=== PATIENT | female | born 1930 | race Two or more races ===

== ENCOUNTER 2017-05-21 16:02 | Inpatient (IN) | payer MEDICARE, MEDICAID ==
[~2017-05-21] VITALS: Ht 160 cm; Wt 54.4 kg
[2017-05-21] MEDS ORDERED: Sodium Chloride 500ML 500 ML IV ONE (16:08)
[2017-05-21 16:15] VITALS: BP 136/66
[2017-05-21 17:01] LABS: BASOPHILS % (AUTO) 0.8 % (0.0-2.0); EOSINOPHILS % (AUTO) 3.3 % (0.0-3.0); LYMPHOCYTES % (AUTO) 18.6 % (20.0-45.0); MEAN CORPUSCULAR HEMOGLOBIN 27.9 PG (27.0-31.0); MEAN CORPUSCULAR HGB CONC 30.9 G/DL (32.0-36.0); MEAN CORPUSCULAR VOLUME 90 FL (80-99); MEAN PLATELET VOLUME 6.7 FL (6.5-10.1); MONOCYTES % (AUTO) 8.3 % (1.0-10.0); NEUTROPHILS % (AUTO) 68.9 % (45.0-75.0); PLATELET COUNT 269 K/UL (150-450); RED BLOOD COUNT 3.79 M/UL (4.20-5.40); RED CELL DISTRIBUTION WIDTH 12.3 % (11.6-14.8); WHITE BLOOD COUNT 10.6 K/UL (4.8-10.8)
[2017-05-21 17:02] LABS: APPEARANCE,URINE CLOUDY; KETONES,URINE 1+ (NEGATIVE); LEUKOCYTE ESTERASE ,URINE 3+ (NEGATIVE); NITRITE,URINE POSITIVE (NEGATIVE); PH,URINE 5 (4.5-8.0); PROTEIN,URINE 2+ (NEGATIVE); UROBILINOGEN,URINE 1 MG/DL (0.0-1.0)
[2017-05-21 17:09] LABS: BACTERIA,URINE MANY /HPF; SQUAMOUS EPITHELIAL CELL,UR FEW /LPF (NONE/OCC); WBC,URINE 30-40 /HPF (0 - 2)
[2017-05-21 17:12] VITALS: BP 154/63
[2017-05-21] MEDS ORDERED: AMLODIPINE BESY10 MG ORAL (17:39)
[2017-05-21] MEDS ORDERED: ASPIRIN EC81 MG ORAL (17:41)
[2017-05-21 17:43] LABS: POTASSIUM 3.3 MMOL/L (3.5-5.1); SODIUM 139 MMOL/L (136-145)
[2017-05-21] MEDS ORDERED: DOCUSATE SODIU100 MG ORAL (17:43)
[2017-05-21 17:44] LABS: ALANINE AMINOTRANSFERASE 25 U/L (12-78); ANION GAP 11 mmol/L (5-15); ASPARTATE AMINO TRANSFERASE 30 U/L (15-37); CALCIUM 8.8 MG/DL (8.5-10.1); CARBON DIOXIDE 26 MMOL/L (21-32); CHLORIDE 102 MMOL/L (98-107); CKMB 1.5 NG/ML (0.0-3.6); CREATININE 1.2 MG/DL (0.55-1.30)
[2017-05-21 17:45] LABS: ALBUMIN/GLOBULIN RATIO 0.9 (1.0-2.7); TOTAL PROTEIN 6.8 G/DL (6.4-8.2)
[2017-05-21] MEDS ORDERED: DULCOLAX10 MG RC (17:45)
[2017-05-21] MEDS ORDERED: FLEET ENEMA133 ML RECTAL (17:49)
[2017-05-21] MEDS ORDERED: LORazepam Inj 2mg/ml 1ml ONE ×2 (17:49→17:51)
[2017-05-21] MEDS ORDERED: METOPROLOL TART25 MG ORAL (17:50)
[2017-05-21] MEDS ORDERED: MILK OF MA400 MG/51 ORAL (17:51)
[2017-05-21] MEDS ORDERED: MULTIVITAMINS1 EA13 ORAL (17:53)
[2017-05-21] MEDS ORDERED: ACETAMINOPHEN325 M1 ORAL ×3 (17:56→17:59)
[2017-05-21] MEDS ORDERED: TRAZODONE HCL50 MG ORAL ×2 (17:56→18:32)
[2017-05-21] MEDS ORDERED: LORazepam Inj 2mg/ml 1ml IV ONE (18:00)
--- NOTE | 2017-05-21 18:01 | Emergency Room Report ---
History of Present Illness General Chief Complaint: Fever Source: Family Member, Medical Record Present Illness HPI 87-year-old female presents to ED for evaluation. Per EMS patient had fever today at residential. Patient was given Tylenol for the fever. Also complaining of cough and congestive symptoms. Cough is dry. Daughter at bedside. Patient does have dementia but denies any chest pain or shortness of breath. Denies any nausea or vomiting. No other aggravating relieving factors. Denies any other associated symptoms Allergies: Coded Allergies: PENICILLINS (Verified Allergy, Unknown, 05/21/17) Shrimp (Verified Allergy, Unknown, 05/21/17) Patient History Past Medical History: HTN, dementia, psych hx Past Surgical History: none Pertinent Family History: none Social History: Denies: smoking, alcohol use, drug use Now: No Reviewed Nursing Documentation: PMH: Agreed, PSxH: Agreed Nursing Documentation-PMH Past Medical History: No History, Except For Hx Hypertension: Yes History Of Psychiatric Problem: Yes - major depression Hx Neurological Problems: Yes - difficulty in walking, muscle weakness, dementia Review of Systems All Other Systems: limited Physical Exam Vital Signs Date Time Temp Pulse Resp B/P (MAP) Pulse Ox O2 Delivery O2 Flow Rate FiO2 05/21/17 15:53 98.2 84 16 140/67 96 Room Air Sp02 EP Interpretation: reviewed, normal General Appearance: no apparent distress, alert, GCS 15, non-toxic Head: normocephalic, atraumatic Eyes: bilateral eye normal inspection, bilateral eye PERRL ENT: hearing grossly normal, normal pharynx, no angioedema, normal voice Neck: full range of motion, supple/symm/no masses Respiratory: chest non-tender, lungs clear, normal breath sounds, speaking full sentences Cardiovascular #1: regular rate, rhythm, no edema Cardiovascular #2: 2+ carotid (R), 2+ carotid (L), 2+ radial (R), 2+ radial (L) , 2+ dorsalis pedis (R), 2+ dorsalis pedis (L) Gastrointestinal: normal bowel sounds, non tender, soft, non-distended, no guarding, no rebound Rectal: deferred Genitourinary: normal inspection, no CVA tenderness Musculoskeletal: back normal, gait/station normal, normal range of motion, non- tender Neurologic: alert, motor strength/tone normal, sensory intact, speech normal, other - dementia Psychiatric: other - dementia Reflexes: 3+ bicep (R), 3+ bicep (L), 3+ tricep (R), 3+ tricep (L), 3+ knee (R) , 3+ knee (L) Skin: normal color, no rash, warm/dry, well hydrated Lymphatic: no adenopathy Medical Decision Making Diagnostic Impression: Primary Impression: UTI (urinary tract infection) Qualified Codes: N39.0 - Urinary tract infection, site not specified Additional Impressions: Weakness Pneumonia Qualified Codes: J18.1 - Lobar pneumonia, unspecified organism ER Course Hospital Course 87-year-old female presenting to ED with generalized weakness, fever Differential diagnoses include: Pneumonia, UTI, sepsis, dehydration, WA/ unstable angina Clinical course Patient placed on stretcher. On satellite project site monitor with stable vitals are ED course. After initial history and physical, I ordered labs, IV fluids, EKG, chest x-ray, blood cultures, UA. Labs - electrolytes ok, no leukocytosis, troponins negative, UA grossly positive for UTI EKG - NSR, no acute ischemic changes interpreted by me CXR - LLL atelectais/infiltrate Abx given. IVFs given. Case discussed with Dr Nayak and they agreed to admit patient to their service for further care and support I feel this is a highly complex case requiring extensive working including EKG/ Rhythm strip, Xray/CT/US, Blood/urine lab work, repeat exams while in ED, and administration of strong opiates/narcotics for pain control, admission to hospital or close patient follow up. Diagnosis - UTI, generalized weakness, pneumonia Patient admitted to floor in serious condition Labs Test 05/21/17 16:35 05/21/17 16:42 Urine Color Yellow Urine Appearance Cloudy Urine pH 5 (4.5-8.0) Urine Specific [place] 1.010 (1.005-1.035) Urine Protein 2+ (NEGATIVE) Urine Glucose (UA) Negative (NEGATIVE) Urine Ketones 1+ (NEGATIVE) Urine Occult Blood 5+ (NEGATIVE) Urine Nitrite Positive (NEGATIVE) Urine Bilirubin Negative (NEGATIVE) Urine Urobilinogen 1 MG/DL (0.0-1.0) Urine Leukocyte Esterase 3+ (NEGATIVE) Urine RBC 5-10 /HPF (0 - 2) Urine WBC 30-40 /HPF (0 - 2) Urine Squamous Epithelial Cells Few /LPF (NONE/OCC) Urine Bacteria Many /HPF (NONE) White Blood Count 10.6 K/UL (4.8-10.8) Red Blood Count 3.79 M/UL (4.20-5.40) Hemoglobin 10.6 G/DL (12.0-16.0) Hematocrit 34.2 % (37.0-47.0) Mean Corpuscular Volume 90 FL (80-99) Mean Corpuscular Hemoglobin 27.9 PG (27.0-31.0) Mean Corpuscular Hemoglobin Concent 30.9 G/DL (32.0-36.0) Red Cell Distribution Width 12.3 % (11.6-14.8) Platelet Count 269 K/UL (150-450) Mean Platelet Volume 6.7 FL (6.5-10.1) Neutrophils (%) (Auto) 68.9 % (45.0-75.0) Lymphocytes (%) (Auto) 18.6 % (20.0-45.0) Monocytes (%) (Auto) 8.3 % (1.0-10.0) Eosinophils (%) (Auto) 3.3 % (0.0-3.0) Basophils (%) (Auto) 0.8 % (0.0-2.0) Sodium Level 139 MMOL/L (136-145) Potassium Level 3.3 MMOL/L (3.5-5.1) Chloride Level 102 MMOL/L (98-107) Carbon Dioxide Level 26 MMOL/L (21-32) Anion Gap 11 mmol/L (5-15) Blood Urea Nitrogen 16 mg/dL (7-18) Creatinine 1.2 MG/DL (0.55-1.30) Estimat Glomerular Filtration Rate mL/min (>60) Glucose Level 110 MG/DL (74-106) Calcium Level 8.8 MG/DL (8.5-10.1) Total Bilirubin 0.6 MG/DL (0.2-1.0) Aspartate Amino Transf (AST/SGOT) 30 U/L (15-37) Alanine Aminotransferase (ALT/SGPT) 25 U/L (12-78) Alkaline Phosphatase 71 U/L (46-116) Total Creatine Kinase 42 U/L (26-308) Creatine Kinase MB 1.5 NG/ML (0.0-3.6) Creatine Kinase MB Relative Index 3.5 Troponin I 0.000 ng/mL (0.000-0.056) Pro-B-Type Natriuretic Peptide 522 pg/mL (0-125) Total Protein 6.8 G/DL (6.4-8.2) Albumin 3.2 G/DL (3.4-5.0) Globulin 3.6 g/dL Albumin/Globulin Ratio 0.9 (1.0-2.7) EKG Diagnostic Results Rate: normal Rhythm: NSR ST Segments: no acute changes ASA given to the pt in ED: No Rhythm Strip Diag. Results EP Interpretation: yes Rhythm: NSR, no PVC's, no ectopy Chest X-Ray Diagnostic Results Chest X-Ray Diagnostic Results : Chest X-Ray Ordered: Yes # of Views/Limited/Complete: 1 View Indication: Other - cough EP Interpretation: Yes Interpretation: no pneumothorax, no acute cardiopulmonary disease, other - atelectasis LLL Impression: Other - pneumonia Electronically Signed by: Electronically signed by Librado Moreno MD Last Vital Signs Date Time Temp Pulse Resp B/P (MAP) Pulse Ox O2 Delivery O2 Flow Rate FiO2 05/21/17 17:12 97.6 76 18 154/63 97 Room Air Status: improved Disposition: ADMITTED INPATIENT Condition: Serious Referrals: SABRINA NAYAK (PCP) LIBRADO MORENO M.D. May 21, 2017 18:01
--- NOTE | 2017-05-21 18:59 | Consultation ---
History of Present Illness General Date patient seen: May 21, 2017 Chief Complaint: Fever Reason for Consultation: dyspnea Present Illness HPI 87-year-old female with hx of dementia, HTN, breast cancer presented to ED for evaluation of fever today at assisted. She is also complaining of cough and congestive symptoms. Denies any nausea or vomiting. No other aggravating relieving factors. Denies any other associated symptoms. she was diagnosed to have pneumonia and admitted for further work up. Allergies: Coded Allergies: PENICILLINS (Verified Allergy, Unknown, 05/21/17) Shrimp (Verified Allergy, Unknown, 05/21/17) Medication History Scheduled Amlodipine Besylate* (Amlodipine Besylate*), 10 MG ORAL DAILY, (Reported) Aspirin Ec* (Aspirin Ec*), 81 MG ORAL DAILY, (Reported) Docusate Sodium* (Docusate Sodium*), 100 MG ORAL DAILY, (Reported) Metoprolol Tartrate* (Metoprolol Tartrate*), 25 MG ORAL BID, (Reported) Multivitamin with Minerals (Multivitamins with Minerals), 1 TAB ORAL DAILY, ( Reported) Trazodone Hcl* (Desyrel*), 25 MG ORAL THREE TIMES A DAY, (Reported) Scheduled PRN Acetaminophen* (Acetaminophen 325MG Tablet*), 650 MG ORAL Q4H PRN for Mild pain/ temp>101, (Reported) Bisacodyl (Dulcolax), 10 MG RC DAILY PRN for Constipation, (Reported) Magnesium Hydroxide* (Milk Of Magnesia*), 30 ML ORAL BEDTIME PRN for Constipation, (Reported) Na Phos,M-B/Na Phos,Di-Ba* (Fleet Enema*), 133 ML RECTAL Q2days PRN for Constipation, (Reported) Patient History Healthcare decision maker Resuscitation status Advanced Directive on File Past Medical/Surgical History Past Medical/Surgical History: (1) Breast cancer (2) Dementia (3) Hypertension Review of Systems All Other Systems: negative except mentioned in HPI Physical Exam General Appearance: WD/WN Lines, tubes and drains: peripheral HEENT: normocephalic, atraumatic Neck: non-tender, normal alignment Cardiovascular/Chest: normal peripheral pulses, normal rate Abdomen: normal bowel sounds Genitourinary/Rectal: normal genital exam Extremities: non-tender Last 24 Hour Vital Signs Date Time Temp Pulse Resp B/P (MAP) Pulse Ox O2 Delivery O2 Flow Rate FiO2 05/21/17 17:12 97.6 76 18 154/63 97 Room Air 05/21/17 15:53 98.2 84 16 140/67 96 Room Air Intake and Output 05/21/17 05/22/17 19:00 07:00 Intake Total 500 ml Balance 500 ml Intake Oral 0 ml IV Total 500 ml Laboratory Tests Test 05/21/17 16:35 05/21/17 16:42 Urine Color Yellow Urine Appearance Cloudy Urine pH 5 (4.5-8.0) Urine Specific [place] 1.010 (1.005-1.035) Urine Protein 2+ (NEGATIVE) H Urine Glucose (UA) Negative (NEGATIVE) Urine Ketones 1+ (NEGATIVE) H Urine Occult Blood 5+ (NEGATIVE) H Urine Nitrite Positive (NEGATIVE) H Urine Bilirubin Negative (NEGATIVE) Urine Urobilinogen 1 MG/DL (0.0-1.0) H Urine Leukocyte Esterase 3+ (NEGATIVE) H Urine RBC 5-10 /HPF (0 - 2) H Urine WBC 30-40 /HPF (0 - 2) H Urine Squamous Epithelial Cells Few /LPF (NONE/OCC) Urine Bacteria Many /HPF (NONE) H White Blood Count 10.6 K/UL (4.8-10.8) Red Blood Count 3.79 M/UL (4.20-5.40) L Hemoglobin 10.6 G/DL (12.0-16.0) L Hematocrit 34.2 % (37.0-47.0) L Mean Corpuscular Volume 90 FL (80-99) Mean Corpuscular Hemoglobin 27.9 PG (27.0-31.0) Mean Corpuscular Hemoglobin Concent 30.9 G/DL (32.0-36.0) L Red Cell Distribution Width 12.3 % (11.6-14.8) Platelet Count 269 K/UL (150-450) Mean Platelet Volume 6.7 FL (6.5-10.1) Neutrophils (%) (Auto) 68.9 % (45.0-75.0) Lymphocytes (%) (Auto) 18.6 % (20.0-45.0) L Monocytes (%) (Auto) 8.3 % (1.0-10.0) Eosinophils (%) (Auto) 3.3 % (0.0-3.0) H Basophils (%) (Auto) 0.8 % (0.0-2.0) Sodium Level 139 MMOL/L (136-145) Potassium Level 3.3 MMOL/L (3.5-5.1) L Chloride Level 102 MMOL/L (98-107) Carbon Dioxide Level 26 MMOL/L (21-32) Anion Gap 11 mmol/L (5-15) Blood Urea Nitrogen 16 mg/dL (7-18) Creatinine 1.2 MG/DL (0.55-1.30) Estimat Glomerular Filtration Rate mL/min (>60) Glucose Level 110 MG/DL (74-106) H Calcium Level 8.8 MG/DL (8.5-10.1) Total Bilirubin 0.6 MG/DL (0.2-1.0) Aspartate Amino Transf (AST/SGOT) 30 U/L (15-37) Alanine Aminotransferase (ALT/SGPT) 25 U/L (12-78) Alkaline Phosphatase 71 U/L (46-116) Total Creatine Kinase 42 U/L (26-308) Creatine Kinase MB 1.5 NG/ML (0.0-3.6) Creatine Kinase MB Relative Index 3.5 Troponin I 0.000 ng/mL (0.000-0.056) Pro-B-Type Natriuretic Peptide 522 pg/mL (0-125) H Total Protein 6.8 G/DL (6.4-8.2) Albumin 3.2 G/DL (3.4-5.0) L Globulin 3.6 g/dL Albumin/Globulin Ratio 0.9 (1.0-2.7) L Microbiology Date/Time Source Procedure Growth Status 05/21/17 17:35 Nasal Nares Influenza Types A,B Antigen ([facility]ACE) - Final Complete Height (Feet): 5 Height (Inches): 3.00 Weight (Pounds): 120 Assessment/Plan Problem List: (1) Pneumonia ICD Codes: J18.9 - Pneumonia, unspecified organism SNOMED: 218639425 Qualifiers: Qualified Codes: J18.1 - Lobar pneumonia, unspecified organism (2) Dementia ICD Codes: F03.90 - Unspecified dementia without behavioral disturbance SNOMED: 14267262 (3) Breast cancer ICD Codes: C50.919 - Malignant neoplasm of unspecified site of unspecified female breast SNOMED: 732374069 (4) Hypertension ICD Codes: I10 - Essential (primary) hypertension SNOMED: 13868554 Assessment/Plan iv abx chest pt respiratory treatment check electrolytes psych evaluation ZANE NERI May 21, 2017 18:59
[2017-05-21] MEDS ORDERED: Miralax 17gm pkt ORAL PRN (19:00)
[2017-05-21] MEDS ORDERED: Nitroglycerin Subl 0.4mg tab SL PRN (19:00)
[2017-05-21] MEDS ORDERED: Albuterol/Ipratropium 3ml neb HHN PRN (19:00)
[2017-05-21] MEDS ORDERED: Promethazine/Codeine 5ml UD ORAL PRN (19:00)
[2017-05-21] MEDS ORDERED: Mylanta II UD 30ml ORAL PRN (19:00)
[2017-05-21 20:00] VITALS: BP 128/64
[2017-05-21] MEDS ORDERED: Cefepime HCl 1 GM in D5W 55 ML IV SCH (21:00)
[2017-05-21] MEDS ORDERED: Vancomycin 1gm/D5W 275ml IVPB ONE ×2 (21:30)
[2017-05-21] MEDS: Aztreonam 1gm/D5W 55ml IVPB SCH ×2 (22:46)
[2017-05-21] MEDS: Heparin 5000 units/ml inj SUBQ SCH (22:49)
[2017-05-22] VITALS (7 sets, daily range): BP systolic 107–158; BP diastolic 45–88
[2017-05-22 07:14] LABS: ANION GAP 14 mmol/L (5-15); CALCIUM 8.7 MG/DL (8.5-10.1); CARBON DIOXIDE 23 MMOL/L (21-32); CHLORIDE 101 MMOL/L (98-107); CREATININE 0.9 MG/DL (0.55-1.30); PHOSPHORUS 2.4 MG/DL (2.5-4.9); SODIUM 138 MMOL/L (136-145)
[2017-05-22 07:54] LABS: BASOPHILS % (AUTO) 0.7 % (0.0-2.0); EOSINOPHILS % (AUTO) 4.8 % (0.0-3.0); LYMPHOCYTES % (AUTO) 14.5 % (20.0-45.0); MEAN CORPUSCULAR HEMOGLOBIN 28.5 PG (27.0-31.0); MEAN CORPUSCULAR HGB CONC 31.5 G/DL (32.0-36.0); MEAN CORPUSCULAR VOLUME 90 FL (80-99); MEAN PLATELET VOLUME 5.6 FL (6.5-10.1); MONOCYTES % (AUTO) 7.1 % (1.0-10.0); NEUTROPHILS % (AUTO) 72.9 % (45.0-75.0); PLATELET COUNT 277 K/UL (150-450); RED BLOOD COUNT 3.79 M/UL (4.20-5.40); RED CELL DISTRIBUTION WIDTH 12.1 % (11.6-14.8); WHITE BLOOD COUNT 11.5 K/UL (4.8-10.8)
[2017-05-22] MEDS: D5 1/2NS 1,000 ML IV SCH (09:17)
[2017-05-22] MEDS: TraZODone 50mg tab ORAL SCH ×3 (09:17→18:00)
[2017-05-22] MEDS: Heparin 5000 units/ml inj SUBQ SCH ×2 (09:18→21:11)
[2017-05-22] MEDS: Metoprolol 25mg tab ORAL SCH ×2 (09:22→18:00)
[2017-05-22] MEDS ORDERED: LORazepam Inj 2mg/ml 1ml IM ONE (12:00)
[2017-05-22] MEDS ORDERED: Haloperidol 5mg/ml Inj IM ONE (12:00)
[2017-05-22] MEDS ORDERED: DiphenhydrAMINE 50mg/ml Inj IM ONE (12:00)
--- NOTE | 2017-05-22 12:06 | Diagnostic Imaging Report ---
Indication: Cough Comparison: None A single view chest radiograph was obtained. Findings: There is a question of infiltrate left lung base. This could very well be scarring. Please correlate clinically. Heart size is normal. Aorta is calcified. Bones are osteopenic. Impression: Questionable mild infiltrate left lung base
[2017-05-22] MEDS: Aztreonam 1gm/D5W 55ml IVPB SCH ×4 (12:42→22:53)
--- NOTE | 2017-05-22 12:54 | Infectious Diseases Prog Note ---
Assessment/Plan Assessment/Plan ID consult dictated # [id number] Subjective Allergies: Coded Allergies: PENICILLINS (Verified Allergy, Unknown, 05/21/17) Shrimp (Verified Allergy, Unknown, 05/21/17) Objective Vital Signs Last 24 Hour Vital Signs Date Time Temp Pulse Resp B/P (MAP) Pulse Ox O2 Delivery O2 Flow Rate FiO2 05/22/17 11:58 97.7 78 20 130/53 97 Room Air 05/22/17 09:22 102 131/52 05/22/17 09:22 102 131/52 05/22/17 09:10 102 131/52 05/22/17 08:49 98.2 80 18 113/57 97 Room Air 05/22/17 08:13 92 18 Room Air 05/22/17 04:35 98.2 90 18 140/80 97 Room Air 05/22/17 00:30 97.9 102 19 158/73 95 Room Air 05/21/17 20:00 97.0 90 18 128/64 94 Room Air 05/21/17 19:28 98 18 Room Air 05/21/17 19:00 99 19 111/72 99 Room Air 05/21/17 17:12 97.6 76 18 154/63 97 Room Air 05/21/17 16:15 98.2 64 18 136/66 96 Room Air 05/21/17 15:53 98.2 84 16 140/67 96 Room Air Height (Feet): 5 Height (Inches): 3.00 Weight (Pounds): 120 Microbiology Date/Time Source Procedure Growth Status 05/21/17 17:35 Nasal Nares Influenza Types A,B Antigen (W[facility]ACE) - Final Complete 05/21/17 16:35 Urine,Clean Catch Urine Culture - Preliminary Gram Negative Bacillus 1 Resulted Laboratory Tests Test 05/21/17 16:35 05/21/17 16:42 05/22/17 05:45 Urine Color Yellow Urine Appearance Cloudy Urine pH 5 (4.5-8.0) Urine Specific [place] 1.010 (1.005-1.035) Urine Protein 2+ (NEGATIVE) H Urine Glucose (UA) Negative (NEGATIVE) Urine Ketones 1+ (NEGATIVE) H Urine Occult Blood 5+ (NEGATIVE) H Urine Nitrite Positive (NEGATIVE) H Urine Bilirubin Negative (NEGATIVE) Urine Urobilinogen 1 MG/DL (0.0-1.0) H Urine Leukocyte Esterase 3+ (NEGATIVE) H Urine RBC 5-10 /HPF (0 - 2) H Urine WBC 30-40 /HPF (0 - 2) H Urine Squamous Epithelial Cells Few /LPF (NONE/OCC) Urine Bacteria Many /HPF (NONE) H White Blood Count 10.6 K/UL (4.8-10.8) 11.5 K/UL (4.8-10.8) H Red Blood Count 3.79 M/UL (4.20-5.40) L 3.79 M/UL (4.20-5.40) L Hemoglobin 10.6 G/DL (12.0-16.0) L 10.8 G/DL (12.0-16.0) L Hematocrit 34.2 % (37.0-47.0) L 34.2 % (37.0-47.0) L Mean Corpuscular Volume 90 FL (80-99) 90 FL (80-99) Mean Corpuscular Hemoglobin 27.9 PG (27.0-31.0) 28.5 PG (27.0-31.0) Mean Corpuscular Hemoglobin Concent 30.9 G/DL (32.0-36.0) L 31.5 G/DL (32.0-36.0) L Red Cell Distribution Width 12.3 % (11.6-14.8) 12.1 % (11.6-14.8) Platelet Count 269 K/UL (150-450) 277 K/UL (150-450) Mean Platelet Volume 6.7 FL (6.5-10.1) 5.6 FL (6.5-10.1) L Neutrophils (%) (Auto) 68.9 % (45.0-75.0) 72.9 % (45.0-75.0) Lymphocytes (%) (Auto) 18.6 % (20.0-45.0) L 14.5 % (20.0-45.0) L Monocytes (%) (Auto) 8.3 % (1.0-10.0) 7.1 % (1.0-10.0) Eosinophils (%) (Auto) 3.3 % (0.0-3.0) H 4.8 % (0.0-3.0) H Basophils (%) (Auto) 0.8 % (0.0-2.0) 0.7 % (0.0-2.0) Sodium Level 139 MMOL/L (136-145) 138 MMOL/L (136-145) Potassium Level 3.3 MMOL/L (3.5-5.1) L 3.0 MMOL/L (3.5-5.1) L Chloride Level 102 MMOL/L (98-107) 101 MMOL/L (98-107) Carbon Dioxide Level 26 MMOL/L (21-32) 23 MMOL/L (21-32) Anion Gap 11 mmol/L (5-15) 14 mmol/L (5-15) Blood Urea Nitrogen 16 mg/dL (7-18) 12 mg/dL (7-18) Creatinine 1.2 MG/DL (0.55-1.30) 0.9 MG/DL (0.55-1.30) Estimat Glomerular Filtration Rate mL/min (>60) mL/min (>60) Glucose Level 110 MG/DL (74-106) H 100 MG/DL (74-106) Calcium Level 8.8 MG/DL (8.5-10.1) 8.7 MG/DL (8.5-10.1) Total Bilirubin 0.6 MG/DL (0.2-1.0) Aspartate Amino Transf (AST/SGOT) 30 U/L (15-37) Alanine Aminotransferase (ALT/SGPT) 25 U/L (12-78) Alkaline Phosphatase 71 U/L (46-116) Total Creatine Kinase 42 U/L (26-308) Creatine Kinase MB 1.5 NG/ML (0.0-3.6) Creatine Kinase MB Relative Index 3.5 Troponin I 0.000 ng/mL (0.000-0.056) Pro-B-Type Natriuretic Peptide 522 pg/mL (0-125) H Total Protein 6.8 G/DL (6.4-8.2) Albumin 3.2 G/DL (3.4-5.0) L 2.9 G/DL (3.4-5.0) L Globulin 3.6 g/dL Albumin/Globulin Ratio 0.9 (1.0-2.7) L Phosphorus Level 2.4 MG/DL (2.5-4.9) L Current Medications Medications (Trade) Dose Ordered Sig/Rox Route PRN Reason Start Time Stop Time Status Last Admin Dose Admin Acetaminophen (Tylenol) 650 mg Q4H PRN ORAL fever 05/21/17 19:00 06/20/17 18:59 Al Hydroxide/Mg Hydroxide (Mylanta II) 30 ml Q6H PRN ORAL dyspepsia 05/21/17 19:00 06/20/17 18:59 Albuterol/ Ipratropium (Albuterol/ Ipratropium) 3 ml Q4HRT PRN HHN Shortness of Breath 05/21/17 19:00 05/26/17 18:59 Amlodipine Besylate (Norvasc) 10 mg DAILY ORAL 05/22/17 09:00 06/21/17 08:59 05/22/17 09:22 Aztreonam 1 gm/ Dextrose 55 ml @ 110 mls/hr Q12H IVPB 05/21/17 23:00 05/28/17 22:59 05/22/17 12:42 Dextrose/Sodium Chloride 1,000 ml @ 50 mls/hr Q20H IV 05/22/17 07:30 06/21/17 07:29 05/22/17 09:17 Heparin Sodium (Porcine) (Heparin 5000 units/ml) 5,000 units EVERY 12 HOURS SUBQ 05/21/17 21:00 06/20/17 20:59 05/22/17 09:18 Metoprolol Tartrate (Lopressor) 25 mg BID ORAL 05/22/17 09:00 06/21/17 08:59 05/22/17 09:22 Nitroglycerin (Ntg) 0.4 mg q5 mins PRN SL Prn Chest Pain 05/21/17 19:00 06/20/17 18:59 Ondansetron HCl (Zofran) 4 mg Q6H PRN IVP Nausea & Vomiting 05/21/17 19:00 06/20/17 18:59 Polyethylene Glycol (Miralax) 17 gm DAILYPRN PRN ORAL Constipation 05/21/17 19:00 06/20/17 18:59 Promethazine HCl/ Codeine (Phenergan with Codeine) 5 ml Q4H PRN ORAL For Cough 05/21/17 19:00 06/20/17 18:59 Temazepam (Restoril) 15 mg HSPRN PRN ORAL Insomnia 05/21/17 19:00 05/28/17 18:59 Trazodone HCl (Desyrel) 25 mg THREE TIMES A DAY ORAL 05/22/17 09:00 06/21/17 08:59 05/22/17 09:17 Vancomycin HCl (Vanco rx to dose) 1 ea DAILY PRN MISC Per rx protocol 05/21/17 19:00 06/20/17 18:59 Vancomycin HCl 750 mg/Dextrose 275 ml @ 183.708 mls/hr Q24H IVPB 05/22/17 21:00 05/27/17 20:59 VIKRAM ORELLANA May 22, 2017 12:54
--- NOTE | 2017-05-22 15:26 | Pulmonology Progress Note ---
Assessment/Plan Problems: (1) Pneumonia (2) Dementia (3) Breast cancer (4) Hypertension Assessment/Plan continue abx check sputum tolerating diet chest pt. Subjective ROS Limited/Unobtainable: No Interval Events: confused Constitutional: Reports: no symptoms Respiratory: Reports: no symptoms Allergies: Coded Allergies: PENICILLINS (Verified Allergy, Unknown, 05/21/17) Shrimp (Verified Allergy, Unknown, 05/21/17) Objective Last 24 Hour Vital Signs Date Time Temp Pulse Resp B/P (MAP) Pulse Ox O2 Delivery O2 Flow Rate FiO2 05/22/17 11:58 97.7 78 20 130/53 97 Room Air 05/22/17 09:22 102 131/52 05/22/17 09:22 102 131/52 05/22/17 09:10 102 131/52 05/22/17 08:49 98.2 80 18 113/57 97 Room Air 05/22/17 08:13 92 18 Room Air 05/22/17 04:35 98.2 90 18 140/80 97 Room Air 05/22/17 00:30 97.9 102 19 158/73 95 Room Air 05/21/17 20:00 97.0 90 18 128/64 94 Room Air 05/21/17 19:28 98 18 Room Air 05/21/17 19:00 99 19 111/72 99 Room Air 05/21/17 17:12 97.6 76 18 154/63 97 Room Air 05/21/17 16:15 98.2 64 18 136/66 96 Room Air 05/21/17 15:53 98.2 84 16 140/67 96 Room Air Objective General Appearance: WD/WN Lines, tubes and drains: peripheral HEENT: normocephalic, atraumatic Neck: non-tender, normal alignment Cardiovascular/Chest: normal peripheral pulses, normal rate Abdomen: normal bowel sounds Genitourinary/Rectal: normal genital exam Extremities: non-tender Microbiology Date/Time Source Procedure Growth Status 05/21/17 17:35 Nasal Nares Influenza Types A,B Antigen ([facility]ACE) - Final Complete 05/21/17 16:35 Urine,Clean Catch Urine Culture - Preliminary Gram Negative Bacillus 1 Resulted Laboratory Tests 05/21/17 16:35: Urine Color Yellow, Urine Appearance Cloudy, Urine pH 5, Urine Specific [place] 1.010, Urine Protein 2+H, Urine Glucose (UA) Negative, Urine Ketones 1+H, Urine Occult Blood 5+H, Urine Nitrite PositiveH, Urine Bilirubin Negative, Urine Urobilinogen 1H, Urine Leukocyte Esterase 3+H, Urine RBC 5-10H, Urine WBC 30-40H , Urine Squamous Epithelial Cells Few, Urine Bacteria ManyH 05/21/17 16:42: White Blood Count 10.6, Red Blood Count 3.79L, Hemoglobin 10.6L, Hematocrit 34.2L, Mean Corpuscular Volume 90, Mean Corpuscular Hemoglobin 27.9, Mean Corpuscular Hemoglobin Concent 30.9L, Red Cell Distribution Width 12.3, Platelet Count 269, Mean Platelet Volume 6.7, Neutrophils (%) (Auto) 68.9, Lymphocytes (%) (Auto) 18.6L, Monocytes (%) (Auto) 8.3, Eosinophils (%) (Auto) 3.3H, Basophils (%) (Auto) 0.8, Sodium Level 139, Potassium Level 3.3L, Chloride Level 102, Carbon Dioxide Level 26, Anion Gap 11, Blood Urea Nitrogen 16, Creatinine 1.2, Estimat Glomerular Filtration Rate , Glucose Level 110H, Calcium Level 8.8, Total Bilirubin 0.6, Aspartate Amino Transf (AST/SGOT) 30, Alanine Aminotransferase (ALT/SGPT) 25, Alkaline Phosphatase 71, Total Creatine Kinase 42, Creatine Kinase MB 1.5, Creatine Kinase MB Relative Index 3.5, Troponin I 0.000, Pro-B-Type Natriuretic Peptide 522H, Total Protein 6.8, Albumin 3.2L, Globulin 3.6, Albumin/Globulin Ratio 0.9L 05/22/17 05:45: White Blood Count 11.5H, Red Blood Count 3.79L, Hemoglobin 10.8L, Hematocrit 34.2L, Mean Corpuscular Volume 90, Mean Corpuscular Hemoglobin 28.5, Mean Corpuscular Hemoglobin Concent 31.5L, Red Cell Distribution Width 12.1, Platelet Count 277, Mean Platelet Volume 5.6L, Neutrophils (%) (Auto) 72.9, Lymphocytes (%) (Auto) 14.5L, Monocytes (%) (Auto) 7.1, Eosinophils (%) (Auto) 4.8H, Basophils (%) (Auto) 0.7, Sodium Level 138, Potassium Level 3.0L, Chloride Level 101, Carbon Dioxide Level 23, Anion Gap 14, Blood Urea Nitrogen 12, Creatinine 0.9, Estimat Glomerular Filtration Rate , Glucose Level 100, Calcium Level 8.7, Albumin 2.9L, Phosphorus Level 2.4L Current Medications Medications (Trade) Dose Ordered Sig/Rox Route PRN Reason Start Time Stop Time Status Last Admin Dose Admin Acetaminophen (Tylenol) 650 mg Q4H PRN ORAL fever 05/21/17 19:00 06/20/17 18:59 Al Hydroxide/Mg Hydroxide (Mylanta II) 30 ml Q6H PRN ORAL dyspepsia 05/21/17 19:00 06/20/17 18:59 Albuterol/ Ipratropium (Albuterol/ Ipratropium) 3 ml Q4HRT PRN HHN Shortness of Breath 05/21/17 19:00 05/26/17 18:59 Amlodipine Besylate (Norvasc) 10 mg DAILY ORAL 05/22/17 09:00 06/21/17 08:59 05/22/17 09:22 Aztreonam 1 gm/ Dextrose 55 ml @ 110 mls/hr Q12H IVPB 05/21/17 23:00 05/28/17 22:59 05/22/17 12:42 Dextrose/Sodium Chloride 1,000 ml @ 50 mls/hr Q20H IV 05/22/17 07:30 06/21/17 07:29 05/22/17 09:17 Heparin Sodium (Porcine) (Heparin 5000 units/ml) 5,000 units EVERY 12 HOURS SUBQ 05/21/17 21:00 06/20/17 20:59 05/22/17 09:18 Metoprolol Tartrate (Lopressor) 25 mg BID ORAL 05/22/17 09:00 06/21/17 08:59 05/22/17 09:22 Nitroglycerin (Ntg) 0.4 mg q5 mins PRN SL Prn Chest Pain 05/21/17 19:00 06/20/17 18:59 Ondansetron HCl (Zofran) 4 mg Q6H PRN IVP Nausea & Vomiting 05/21/17 19:00 06/20/17 18:59 Polyethylene Glycol (Miralax) 17 gm DAILYPRN PRN ORAL Constipation 05/21/17 19:00 06/20/17 18:59 Promethazine HCl/ Codeine (Phenergan with Codeine) 5 ml Q4H PRN ORAL For Cough 05/21/17 19:00 06/20/17 18:59 Temazepam (Restoril) 15 mg HSPRN PRN ORAL Insomnia 05/21/17 19:00 05/28/17 18:59 Trazodone HCl (Desyrel) 25 mg THREE TIMES A DAY ORAL 05/22/17 09:00 06/21/17 08:59 05/22/17 09:17 Vancomycin HCl (Vanco rx to dose) 1 ea DAILY PRN MISC Per rx protocol 05/21/17 19:00 06/20/17 18:59 Vancomycin HCl 750 mg/Dextrose 275 ml @ 183.708 mls/hr Q24H IVPB 05/22/17 21:00 05/27/17 20:59 ZANE NERI May 22, 2017 15:26
[2017-05-22] MEDS ORDERED: Vancomycin 750mg/D5W 275ml IVPB SCH ×2 (21:00)
--- NOTE | 2017-05-22 22:24 | Consultation ---
History of Present Illness General Chief Complaint: Fever Reason for Consultation: dyspnea Present Illness HPI 87-year-old female with hx of dementia, HTN, breast cancer presented to ED for evaluation of fever today at residential. the pt was agitated today and Dr. staples was called and he ordered a cocktail shot. the pe has not been seen and was still agitated. During the eval the pt was confused she knew she was in the hospital however didnt know the date nor the situation lead to this hospitalization. discuss the case with pt's nurse, to check vitals q 15 min for one hour and raise the pt's head Allergies: Coded Allergies: PENICILLINS (Verified Allergy, Unknown, 05/21/17) Shrimp (Verified Allergy, Unknown, 05/21/17) Medication History Scheduled Amlodipine Besylate* (Amlodipine Besylate*), 10 MG ORAL DAILY, (Reported) Aspirin Ec* (Aspirin Ec*), 81 MG ORAL DAILY, (Reported) Docusate Sodium* (Docusate Sodium*), 100 MG ORAL DAILY, (Reported) Metoprolol Tartrate* (Metoprolol Tartrate*), 25 MG ORAL BID, (Reported) Multivitamin with Minerals (Multivitamins with Minerals), 1 TAB ORAL DAILY, ( Reported) Trazodone Hcl* (Desyrel*), 25 MG ORAL THREE TIMES A DAY, (Reported) Scheduled PRN Acetaminophen* (Acetaminophen 325MG Tablet*), 650 MG ORAL Q4H PRN for Mild pain/ temp>101, (Reported) Bisacodyl (Dulcolax), 10 MG RC DAILY PRN for Constipation, (Reported) Magnesium Hydroxide* (Milk Of Magnesia*), 30 ML ORAL BEDTIME PRN for Constipation, (Reported) Na Phos,M-B/Na Phos,Di-Ba* (Fleet Enema*), 133 ML RECTAL Q2days PRN for Constipation, (Reported) Patient History History Provided By: Patient, Medical Record, PMD Healthcare decision maker Resuscitation status Full Code Advanced Directive on File Past Medical/Surgical History Past Medical/Surgical History: (1) Weakness (2) UTI (urinary tract infection) (3) Dementia (4) Breast cancer (5) Hypertension (6) Pneumonia Review of Systems Psychiatric: Reports: prior hx, anxiety, depressed feelings, emotional problems , hallucinations Physical Exam General Appearance: no apparent distress, alert, confused, thin Neurologic: alert, responsive, depressed affect Last 24 Hour Vital Signs Date Time Temp Pulse Resp B/P (MAP) Pulse Ox O2 Delivery O2 Flow Rate FiO2 05/22/17 20:15 90 18 Room Air 05/22/17 20:00 98.1 86 18 107/45 93 Room Air 05/22/17 18:00 90 110/88 05/22/17 16:28 97.6 90 20 110/88 93 05/22/17 11:58 97.7 78 20 130/53 97 Room Air 05/22/17 09:22 102 131/52 05/22/17 09:22 102 131/52 05/22/17 09:10 102 131/52 05/22/17 08:49 98.2 80 18 113/57 97 Room Air 05/22/17 08:13 92 18 Room Air 05/22/17 04:35 98.2 90 18 140/80 97 Room Air 05/22/17 00:30 97.9 102 19 158/73 95 Room Air Intake and Output 05/22/17 05/23/17 19:00 07:00 Intake Total 100 ml Balance 100 ml Intake Oral 50 ml IV Total 50 ml # Voids 3 # Bowel Movements 1 Laboratory Tests Test 05/22/17 05:45 White Blood Count 11.5 K/UL (4.8-10.8) H Red Blood Count 3.79 M/UL (4.20-5.40) L Hemoglobin 10.8 G/DL (12.0-16.0) L Hematocrit 34.2 % (37.0-47.0) L Mean Corpuscular Volume 90 FL (80-99) Mean Corpuscular Hemoglobin 28.5 PG (27.0-31.0) Mean Corpuscular Hemoglobin Concent 31.5 G/DL (32.0-36.0) L Red Cell Distribution Width 12.1 % (11.6-14.8) Platelet Count 277 K/UL (150-450) Mean Platelet Volume 5.6 FL (6.5-10.1) L Neutrophils (%) (Auto) 72.9 % (45.0-75.0) Lymphocytes (%) (Auto) 14.5 % (20.0-45.0) L Monocytes (%) (Auto) 7.1 % (1.0-10.0) Eosinophils (%) (Auto) 4.8 % (0.0-3.0) H Basophils (%) (Auto) 0.7 % (0.0-2.0) Sodium Level 138 MMOL/L (136-145) Potassium Level 3.0 MMOL/L (3.5-5.1) L Chloride Level 101 MMOL/L (98-107) Carbon Dioxide Level 23 MMOL/L (21-32) Anion Gap 14 mmol/L (5-15) Blood Urea Nitrogen 12 mg/dL (7-18) Creatinine 0.9 MG/DL (0.55-1.30) Estimat Glomerular Filtration Rate mL/min (>60) Glucose Level 100 MG/DL (74-106) Calcium Level 8.7 MG/DL (8.5-10.1) Phosphorus Level 2.4 MG/DL (2.5-4.9) L Albumin 2.9 G/DL (3.4-5.0) L Height (Feet): 5 Height (Inches): 3.00 Weight (Pounds): 120 Medications Current Medications Medications (Trade) Dose Ordered Sig/Rox Route PRN Reason Start Time Stop Time Status Last Admin Dose Admin Acetaminophen (Tylenol) 650 mg Q4H PRN ORAL fever 05/21/17 19:00 06/20/17 18:59 Al Hydroxide/Mg Hydroxide (Mylanta II) 30 ml Q6H PRN ORAL dyspepsia 05/21/17 19:00 06/20/17 18:59 Albuterol/ Ipratropium (Albuterol/ Ipratropium) 3 ml Q4HRT PRN HHN Shortness of Breath 05/21/17 19:00 05/26/17 18:59 Amlodipine Besylate (Norvasc) 10 mg DAILY ORAL 05/22/17 09:00 06/21/17 08:59 05/22/17 09:22 Aztreonam 1 gm/ Dextrose 55 ml @ 110 mls/hr Q8HR IVPB 05/22/17 22:00 05/28/17 22:59 Dextrose/Sodium Chloride 1,000 ml @ 50 mls/hr Q20H IV 05/22/17 07:30 06/21/17 07:29 05/22/17 09:17 Heparin Sodium (Porcine) (Heparin 5000 units/ml) 5,000 units EVERY 12 HOURS SUBQ 05/21/17 21:00 06/20/17 20:59 05/22/17 21:11 Metoprolol Tartrate (Lopressor) 25 mg BID ORAL 05/22/17 09:00 06/21/17 08:59 05/22/17 09:22 Nitroglycerin (Ntg) 0.4 mg q5 mins PRN SL Prn Chest Pain 05/21/17 19:00 06/20/17 18:59 Ondansetron HCl (Zofran) 4 mg Q6H PRN IVP Nausea & Vomiting 05/21/17 19:00 06/20/17 18:59 Polyethylene Glycol (Miralax) 17 gm DAILYPRN PRN ORAL Constipation 05/21/17 19:00 06/20/17 18:59 Promethazine HCl/ Codeine (Phenergan with Codeine) 5 ml Q4H PRN ORAL For Cough 05/21/17 19:00 06/20/17 18:59 Temazepam (Restoril) 15 mg HSPRN PRN ORAL Insomnia 05/21/17 19:00 05/28/17 18:59 Trazodone HCl (Desyrel) 25 mg THREE TIMES A DAY ORAL 05/22/17 09:00 06/21/17 08:59 05/22/17 09:17 Vancomycin HCl (Vanco rx to dose) 1 ea DAILY PRN MISC Per rx protocol 05/21/17 19:00 06/20/17 18:59 Vancomycin HCl 750 mg/Dextrose 275 ml @ 183.708 mls/hr Q24H IVPB 05/22/17 21:00 05/27/17 20:59 05/22/17 21:08 Assessment/Plan Status: stable Assessment/Plan dementia psychotic d/o zyprexa 5mg qhs depakote 250 qhs Opal Hidalgo M.D. May 22, 2017 22:24
--- NOTE | 2017-05-22 22:45 | History and Physical Report ---
DATE OF ADMISSION: 05/21/2017 TIME SEEN: At 1 p.m. ATTENDING PHYSICIAN: Mic Romero D.O. CONSULTANTS: 1. Kobi Lentz M.D. 2. Dr. Jones. 3. Aletha Valencia M.D. CHIEF COMPLAINT: Weakness, lethargy, UTI, pneumonia, and sepsis. BRIEF HISTORY: An 87-year-old female from [facility], presents with the above-mentioned diagnosis. In the ER, diagnosed with UTI, pneumonia, sepsis, and weakness and admitted to medical floor for further treatment. Currently calm, confused in bed, which is her baseline. PAST MEDICAL HISTORY: Hypertension, hypercholesterol, and dementia. PAST SURGICAL HISTORY: Neck. MEDICATIONS: Include vancomycin, Norvasc, Lopressor, Desyrel, aztreonam, heparin, Tylenol, MiraLax, nitroglycerin, and Phenergan. ALLERGIES: Penicillin. SOCIAL HISTORY: No smoking. No alcohol. No intravenous drug abuse. FAMILY HISTORY: Noncontributory. REVIEW OF SYSTEMS: Not available. PHYSICAL EXAMINATION: GENERAL: Calm in bed, oriented x1, in no distress. VITAL SIGNS: Show temperature 97 degrees, pulse 78, respirations 20, and blood pressure 130/53. CARDIOVASCULAR: No murmur. LUNGS: Poor exchange. ABDOMEN: Bowel sounds are positive. Nontender and nondistended. EXTREMITIES: No cyanosis, clubbing, or edema. NEUROLOGICAL: The patient moves all extremities slightly weak. LABORATORY DATA: Labs at this time show hemoglobin 10.8, white count 11.5, otherwise CBC is normal. BMP show potassium 3.0, otherwise BMP is normal. Urinalysis show nitrite positive and leukocyte 3+. ASSESSMENT: 1. Urinary tract infection. 2. Pneumonia. 3. Sepsis. 4. Weakness. 5. Dementia. 6. Hypokalemia. 7. Encephalopathy. 8. Anemia. PLAN: 1. Continue premedications. 2. IV fluids. 3. OT, PT, and dietary followup. 4. O2 and pulmonary treatment. 5. Antibiotics per Infectious Diseases. 6. Resume home medications. 7. Dr. Lentz, Dr. Jones, Dr. Valencia, and Dr. Hall to consult. 8. We will continue to follow the patient medically. Mic Romero D.O. DR: Liliya JOB#: [id number] CC:
[2017-05-23] VITALS (7 sets, daily range): BP systolic 116–149; BP diastolic 48–109
[2017-05-23] MEDS: D5 1/2NS 1,000 ML IV SCH ×2 (03:07→23:21)
[2017-05-23] MEDS: Aztreonam 1gm/D5W 55ml IVPB SCH ×6 (05:14→22:24)
[2017-05-23 07:46] LABS: BASOPHILS % (AUTO) 0.8 % (0.0-2.0); EOSINOPHILS % (AUTO) 10.9 % (0.0-3.0); MEAN CORPUSCULAR HEMOGLOBIN 29.2 PG (27.0-31.0); MEAN CORPUSCULAR HGB CONC 33.2 G/DL (32.0-36.0); MEAN CORPUSCULAR VOLUME 88 FL (80-99); MEAN PLATELET VOLUME 5.5 FL (6.5-10.1); MONOCYTES % (AUTO) 7.6 % (1.0-10.0); NEUTROPHILS % (AUTO) 61.7 % (45.0-75.0); PLATELET COUNT 317 K/UL (150-450); RED BLOOD COUNT 3.66 M/UL (4.20-5.40)
[2017-05-23 07:55] LABS: ANION GAP 12 mmol/L (5-15); CALCIUM 8.8 MG/DL (8.5-10.1); CARBON DIOXIDE 22 MMOL/L (21-32); CHLORIDE 105 MMOL/L (98-107); CREATININE 0.9 MG/DL (0.55-1.30); POTASSIUM 3.3 MMOL/L (3.5-5.1); SODIUM 139 MMOL/L (136-145)
--- NOTE | 2017-05-23 08:18 | General Progress Note ---
Assessment/Plan Problem List: (1) Hypokalemia ICD Codes: E87.6 - Hypokalemia SNOMED: 67394551 (2) Weakness ICD Codes: R53.1 - Weakness SNOMED: 81677768 (3) UTI (urinary tract infection) ICD Codes: N39.0 - Urinary tract infection, site not specified SNOMED: 48631532 Qualifiers: Qualified Codes: N39.0 - Urinary tract infection, site not specified (4) Dementia ICD Codes: F03.90 - Unspecified dementia without behavioral disturbance SNOMED: 61850748 (5) Hypertension ICD Codes: I10 - Essential (primary) hypertension SNOMED: 05207028 (6) Pneumonia ICD Codes: J18.9 - Pneumonia, unspecified organism SNOMED: 694379770 Qualifiers: Qualified Codes: J18.1 - Lobar pneumonia, unspecified organism Status: stable, progressing, tolerating diet Assessment/Plan ot pt diet abx neph f/u cbc bmp am Subjective Constitutional: Reports: weakness Allergies: Coded Allergies: PENICILLINS (Verified Allergy, Unknown, 05/21/17) Shrimp (Verified Allergy, Unknown, 05/21/17) All Systems: reviewed and negative except above Subjective sleepy calm Objective Last 24 Hour Vital Signs Date Time Temp Pulse Resp B/P (MAP) Pulse Ox O2 Delivery O2 Flow Rate FiO2 05/23/17 08:00 97.9 88 22 124/55 94 Room Air 05/23/17 04:00 98.1 89 19 139/96 96 Room Air 05/23/17 00:00 97.9 81 19 116/48 96 Room Air 05/22/17 20:15 90 18 Room Air 05/22/17 20:00 98.1 86 18 107/45 93 Room Air 05/22/17 18:00 90 110/88 05/22/17 16:28 97.6 90 20 110/88 93 05/22/17 11:58 97.7 78 20 130/53 97 Room Air 05/22/17 09:22 102 131/52 05/22/17 09:22 102 131/52 05/22/17 09:10 102 131/52 05/22/17 08:49 98.2 80 18 113/57 97 Room Air Laboratory Tests 05/23/17 05:19: White Blood Count 9.0, Red Blood Count 3.66L, Hemoglobin 10.7L, Hematocrit 32.1L , Mean Corpuscular Volume 88, Mean Corpuscular Hemoglobin 29.2, Mean Corpuscular Hemoglobin Concent 33.2, Red Cell Distribution Width 12.0, Platelet Count 317, Mean Platelet Volume 5.5L, Neutrophils (%) (Auto) 61.7, Lymphocytes ( %) (Auto) 19.0L, Monocytes (%) (Auto) 7.6, Eosinophils (%) (Auto) 10.9H, Basophils (%) (Auto) 0.8, Sodium Level 139, Potassium Level 3.3L, Chloride Level 105, Carbon Dioxide Level 22, Anion Gap 12, Blood Urea Nitrogen 11, Creatinine 0.9, Estimat Glomerular Filtration Rate , Glucose Level 123H, Calcium Level 8.8 Height (Feet): 5 Height (Inches): 3.00 Weight (Pounds): 120 General Appearance: lethargic EENT: normal ENT inspection Neck: normal alignment Cardiovascular: normal peripheral pulses, normal rate, regular rhythm Respiratory/Chest: chest wall non-tender, lungs clear, normal breath sounds Abdomen: normal bowel sounds, non tender, soft Extremities: normal inspection Edema: no edema noted Arm (L), no edema noted Arm (R), no edema noted Leg (L), no edema noted Leg (R), no edema noted Pedal (L), no edema noted Pedal (R), no edema noted Generalized Neurologic: motor weakness Skin: normal pigmentation, warm/dry SABRINA NAYAK May 23, 2017 08:18
--- NOTE | 2017-05-23 09:19 | Pulmonology Progress Note ---
Assessment/Plan Problems: (1) Pneumonia (2) Dementia (3) Breast cancer (4) Hypertension Assessment/Plan better controlled behavior continue abx check sputum tolerating diet chest pt. all notes and meds reviewed, labs ordered. Subjective ROS Limited/Unobtainable: No Constitutional: Reports: no symptoms HEENT: Repors: no symptoms Respiratory: Reports: no symptoms Allergies: Coded Allergies: PENICILLINS (Verified Allergy, Unknown, 05/21/17) Shrimp (Verified Allergy, Unknown, 05/21/17) Objective Last 24 Hour Vital Signs Date Time Temp Pulse Resp B/P (MAP) Pulse Ox O2 Delivery O2 Flow Rate FiO2 05/23/17 08:30 94 18 Room Air 05/23/17 08:00 97.9 88 22 124/55 94 Room Air 05/23/17 04:00 98.1 89 19 139/96 96 Room Air 05/23/17 00:00 97.9 81 19 116/48 96 Room Air 05/22/17 20:15 90 18 Room Air 05/22/17 20:00 98.1 86 18 107/45 93 Room Air 05/22/17 18:00 90 110/88 05/22/17 16:28 97.6 90 20 110/88 93 05/22/17 11:58 97.7 78 20 130/53 97 Room Air 05/22/17 09:22 102 131/52 05/22/17 09:22 102 131/52 Objective General Appearance: WD/WN Lines, tubes and drains: peripheral HEENT: normocephalic, atraumatic Neck: non-tender, normal alignment Cardiovascular/Chest: normal peripheral pulses, normal rate Abdomen: normal bowel sounds Genitourinary/Rectal: normal genital exam Extremities: non-tender Microbiology Date/Time Source Procedure Growth Status 05/21/17 16:42 Blood Blood Culture - Preliminary NO GROWTH AFTER 24 HOURS Resulted 05/21/17 16:42 Blood Blood Culture - Preliminary NO GROWTH AFTER 24 HOURS Resulted 05/21/17 17:35 Nasal Nares Influenza Types A,B Antigen (WALLACE) - Final Complete 05/21/17 16:35 Urine,Clean Catch Urine Culture - Preliminary Gram Negative Bacillus 1 Resulted 05/21/17 18:58 Rectum VRE Culture - Final NO VANCOMYCIN RESISTANT ENTEROCOCCUS ... Complete Laboratory Tests 05/23/17 05:19: White Blood Count 9.0, Red Blood Count 3.66L, Hemoglobin 10.7L, Hematocrit 32.1L , Mean Corpuscular Volume 88, Mean Corpuscular Hemoglobin 29.2, Mean Corpuscular Hemoglobin Concent 33.2, Red Cell Distribution Width 12.0, Platelet Count 317, Mean Platelet Volume 5.5L, Neutrophils (%) (Auto) 61.7, Lymphocytes ( %) (Auto) 19.0L, Monocytes (%) (Auto) 7.6, Eosinophils (%) (Auto) 10.9H, Basophils (%) (Auto) 0.8, Sodium Level 139, Potassium Level 3.3L, Chloride Level 105, Carbon Dioxide Level 22, Anion Gap 12, Blood Urea Nitrogen 11, Creatinine 0.9, Estimat Glomerular Filtration Rate , Glucose Level 123H, Calcium Level 8.8 Current Medications Medications (Trade) Dose Ordered Sig/Rox Route PRN Reason Start Time Stop Time Status Last Admin Dose Admin Acetaminophen (Tylenol) 650 mg Q4H PRN ORAL fever 05/21/17 19:00 06/20/17 18:59 05/23/17 06:15 Al Hydroxide/Mg Hydroxide (Mylanta II) 30 ml Q6H PRN ORAL dyspepsia 05/21/17 19:00 06/20/17 18:59 Albuterol/ Ipratropium (Albuterol/ Ipratropium) 3 ml Q4HRT PRN HHN Shortness of Breath 05/21/17 19:00 05/26/17 18:59 Amlodipine Besylate (Norvasc) 10 mg DAILY ORAL 05/22/17 09:00 06/21/17 08:59 05/22/17 09:22 Aztreonam 1 gm/ Dextrose 55 ml @ 110 mls/hr Q8HR IVPB 05/22/17 22:00 05/28/17 22:59 05/23/17 05:14 Dextrose/Sodium Chloride 1,000 ml @ 50 mls/hr Q20H IV 05/22/17 07:30 06/21/17 07:29 05/23/17 03:07 Divalproex Sodium (Depakote ER) 250 mg BEDTIME ORAL 05/23/17 21:00 06/22/17 20:59 Heparin Sodium (Porcine) (Heparin 5000 units/ml) 5,000 units EVERY 12 HOURS SUBQ 05/21/17 21:00 06/20/17 20:59 05/22/17 21:11 Metoprolol Tartrate (Lopressor) 25 mg BID ORAL 05/22/17 09:00 06/21/17 08:59 05/22/17 09:22 Nitroglycerin (Ntg) 0.4 mg q5 mins PRN SL Prn Chest Pain 05/21/17 19:00 06/20/17 18:59 Olanzapine (ZyPREXA) 5 mg BEDTIME ORAL 05/23/17 21:00 06/22/17 20:59 Ondansetron HCl (Zofran) 4 mg Q6H PRN IVP Nausea & Vomiting 05/21/17 19:00 06/20/17 18:59 Polyethylene Glycol (Miralax) 17 gm DAILYPRN PRN ORAL Constipation 05/21/17 19:00 06/20/17 18:59 Promethazine HCl/ Codeine (Phenergan with Codeine) 5 ml Q4H PRN ORAL For Cough 05/21/17 19:00 06/20/17 18:59 Temazepam (Restoril) 15 mg HSPRN PRN ORAL Insomnia 05/21/17 19:00 05/28/17 18:59 Vancomycin HCl (Vanco rx to dose) 1 ea DAILY PRN MISC Per rx protocol 05/21/17 19:00 06/20/17 18:59 Vancomycin HCl 750 mg/Dextrose 275 ml @ 183.708 mls/hr Q24H IVPB 05/22/17 21:00 05/27/17 20:59 05/22/17 21:08 ZANE NERI May 23, 2017 09:19
[2017-05-23] MEDS: Metoprolol 25mg tab ORAL SCH ×3 (09:24→17:31)
[2017-05-23] MEDS: Heparin 5000 units/ml inj SUBQ SCH ×2 (09:25→20:43)
[2017-05-23] MEDS ORDERED: D5 1/2NS 1000ml IV ONE (09:43)
[2017-05-23] MEDS ORDERED: NS 275ml ONE (09:43)
[2017-05-23] MEDS ORDERED: Tubing IV Secondary IV ONE (09:43)
[2017-05-23] MEDS ORDERED: Vancomycin 750 MG in NS 275 ML IVPB SCH ×2 (11:15→21:00)
--- NOTE | 2017-05-23 12:10 | Infectious Diseases Prog Note ---
Assessment/Plan Assessment/Plan antibiotics : vancomycin iv, aztreonam A 1. e.coli UTI 2. pneumonia 3. HTN 4. leucocytosis improving P 1. continue aztreonam 2. continue iv vancomycin 3. will follow up cultures Subjective ROS Limited/Unobtainable: Yes Allergies: Coded Allergies: PENICILLINS (Verified Allergy, Unknown, 05/21/17) Shrimp (Verified Allergy, Unknown, 05/21/17) Objective Vital Signs Last 24 Hour Vital Signs Date Time Temp Pulse Resp B/P (MAP) Pulse Ox O2 Delivery O2 Flow Rate FiO2 05/23/17 11:50 96 Room Air 05/23/17 11:42 97.9 92 22 132/58 05/23/17 09:24 87 131/57 05/23/17 09:23 87 131/57 05/23/17 09:22 87 131/57 05/23/17 08:30 94 18 Room Air 05/23/17 08:00 97.9 88 22 124/55 94 Room Air 05/23/17 04:00 98.1 89 19 139/96 96 Room Air 05/23/17 00:00 97.9 81 19 116/48 96 Room Air 05/22/17 20:15 90 18 Room Air 05/22/17 20:00 98.1 86 18 107/45 93 Room Air 05/22/17 18:00 90 110/88 05/22/17 16:28 97.6 90 20 110/88 93 Height (Feet): 5 Height (Inches): 3.00 Weight (Pounds): 120 Respiratory/Chest: lungs clear Cardiovascular: normal rate, regular rhythm, no gallop/murmur Abdomen: soft, non tender Extremities: no edema Microbiology Date/Time Source Procedure Growth Status 05/21/17 16:42 Blood Blood Culture - Preliminary NO GROWTH AFTER 24 HOURS Resulted 05/21/17 16:42 Blood Blood Culture - Preliminary NO GROWTH AFTER 24 HOURS Resulted 05/21/17 17:35 Nasal Nares Influenza Types A,B Antigen (WALLACE) - Final Complete 05/21/17 16:35 Urine,Clean Catch Urine Culture - Final Escherichia Coli Complete 05/21/17 18:58 Rectum VRE Culture - Final NO VANCOMYCIN RESISTANT ENTEROCOCCUS ... Complete Laboratory Tests Test 05/23/17 05:19 White Blood Count 9.0 K/UL (4.8-10.8) Red Blood Count 3.66 M/UL (4.20-5.40) L Hemoglobin 10.7 G/DL (12.0-16.0) L Hematocrit 32.1 % (37.0-47.0) L Mean Corpuscular Volume 88 FL (80-99) Mean Corpuscular Hemoglobin 29.2 PG (27.0-31.0) Mean Corpuscular Hemoglobin Concent 33.2 G/DL (32.0-36.0) Red Cell Distribution Width 12.0 % (11.6-14.8) Platelet Count 317 K/UL (150-450) Mean Platelet Volume 5.5 FL (6.5-10.1) L Neutrophils (%) (Auto) 61.7 % (45.0-75.0) Lymphocytes (%) (Auto) 19.0 % (20.0-45.0) L Monocytes (%) (Auto) 7.6 % (1.0-10.0) Eosinophils (%) (Auto) 10.9 % (0.0-3.0) H Basophils (%) (Auto) 0.8 % (0.0-2.0) Sodium Level 139 MMOL/L (136-145) Potassium Level 3.3 MMOL/L (3.5-5.1) L Chloride Level 105 MMOL/L (98-107) Carbon Dioxide Level 22 MMOL/L (21-32) Anion Gap 12 mmol/L (5-15) Blood Urea Nitrogen 11 mg/dL (7-18) Creatinine 0.9 MG/DL (0.55-1.30) Estimat Glomerular Filtration Rate mL/min (>60) Glucose Level 123 MG/DL (74-106) H Calcium Level 8.8 MG/DL (8.5-10.1) ANDREY MOSS May 23, 2017 12:10
[2017-05-23] MEDS: Depakote ER 250mg tab ORAL SCH (20:42)
[2017-05-24] MEDS: Aztreonam 1gm/D5W 55ml IVPB SCH ×6 (05:58→21:38)
[2017-05-24 08:00] VITALS: BP 138/94
[2017-05-24 08:05] LABS: MEAN CORPUSCULAR HEMOGLOBIN 29.5 PG (27.0-31.0); MEAN CORPUSCULAR HGB CONC 33.2 G/DL (32.0-36.0); MEAN CORPUSCULAR VOLUME 89 FL (80-99); MEAN PLATELET VOLUME 5.5 FL (6.5-10.1); PLATELET COUNT 377 K/UL (150-450); RED BLOOD COUNT 3.76 M/UL (4.20-5.40); RED CELL DISTRIBUTION WIDTH 12.3 % (11.6-14.8); WHITE BLOOD COUNT 8.4 K/UL (4.8-10.8)
[2017-05-24 08:23] LABS: ALANINE AMINOTRANSFERASE 61 U/L (12-78); ALBUMIN/GLOBULIN RATIO 0.6 (1.0-2.7); ANION GAP 11 mmol/L (5-15); ASPARTATE AMINO TRANSFERASE 60 U/L (15-37); CALCIUM 8.9 MG/DL (8.5-10.1); CARBON DIOXIDE 25 MMOL/L (21-32); CHLORIDE 106 MMOL/L (98-107); CREATININE 0.9 MG/DL (0.55-1.30); POTASSIUM 3.2 MMOL/L (3.5-5.1); SODIUM 142 MMOL/L (136-145); TOTAL PROTEIN 7.2 G/DL (6.4-8.2)
--- NOTE | 2017-05-24 08:43 | General Progress Note ---
Assessment/Plan Problem List: (1) Hypokalemia ICD Codes: E87.6 - Hypokalemia SNOMED: 14213140 (2) Weakness ICD Codes: R53.1 - Weakness SNOMED: 64051210 (3) UTI (urinary tract infection) ICD Codes: N39.0 - Urinary tract infection, site not specified SNOMED: 26699092 Qualifiers: Qualified Codes: N39.0 - Urinary tract infection, site not specified (4) Dementia ICD Codes: F03.90 - Unspecified dementia without behavioral disturbance SNOMED: 63180182 (5) Hypertension ICD Codes: I10 - Essential (primary) hypertension SNOMED: 13670431 (6) Pneumonia ICD Codes: J18.9 - Pneumonia, unspecified organism SNOMED: 880080644 Qualifiers: Qualified Codes: J18.1 - Lobar pneumonia, unspecified organism Status: stable, progressing, tolerating diet Assessment/Plan ot pt diet abx neph f/u cbc bmp am dc plan Subjective Constitutional: Reports: weakness Allergies: Coded Allergies: PENICILLINS (Verified Allergy, Unknown, 05/21/17) Shrimp (Verified Allergy, Unknown, 05/21/17) All Systems: reviewed and negative except above Subjective sleepy calm Objective Last 24 Hour Vital Signs Date Time Temp Pulse Resp B/P (MAP) Pulse Ox O2 Delivery O2 Flow Rate FiO2 05/24/17 08:00 97.8 80 19 138/94 98 Room Air 05/24/17 07:00 80 18 Room Air 05/23/17 20:00 97.9 108 20 149/109 94 Room Air 05/23/17 19:35 89 18 Room Air 05/23/17 16:00 97.6 94 20 132/64 96 Room Air 05/23/17 11:50 96 Room Air 05/23/17 11:42 97.9 92 22 132/58 05/23/17 09:24 87 131/57 05/23/17 09:23 87 131/57 05/23/17 09:22 87 131/57 Laboratory Tests 05/24/17 06:57: White Blood Count 8.4, Red Blood Count 3.76L, Hemoglobin 11.1L, Hematocrit 33.3L , Mean Corpuscular Volume 89, Mean Corpuscular Hemoglobin 29.5, Mean Corpuscular Hemoglobin Concent 33.2, Red Cell Distribution Width 12.3, Platelet Count 377, Mean Platelet Volume 5.5L, Neutrophils (%) (Auto) , Lymphocytes (%) ( Auto) , Monocytes (%) (Auto) , Eosinophils (%) (Auto) , Basophils (%) (Auto) , Neutrophils % (Manual) [Pending], Lymphocytes % (Manual) [Pending], Platelet Estimate [Pending], Platelet Morphology [Pending], Sodium Level 142, Potassium Level 3.2L, Chloride Level 106, Carbon Dioxide Level 25, Anion Gap 11, Blood Urea Nitrogen 8, Creatinine 0.9, Estimat Glomerular Filtration Rate , Glucose Level 124H, Calcium Level 8.9, Phosphorus Level [Pending], Magnesium Level [ Pending], Total Bilirubin 0.3, Aspartate Amino Transf (AST/SGOT) 60H, Alanine Aminotransferase (ALT/SGPT) 61, Alkaline Phosphatase 79, Total Protein 7.2, Albumin 2.7L, Globulin 4.5, Albumin/Globulin Ratio 0.6L, Vancomycin Level Trough [Pending] Height (Feet): 5 Height (Inches): 3.00 Weight (Pounds): 120 General Appearance: lethargic EENT: normal ENT inspection Neck: normal alignment Cardiovascular: normal peripheral pulses, normal rate, regular rhythm Respiratory/Chest: chest wall non-tender, lungs clear, normal breath sounds Abdomen: normal bowel sounds, non tender, soft Extremities: normal inspection Edema: no edema noted Arm (L), no edema noted Arm (R), no edema noted Leg (L), no edema noted Leg (R), no edema noted Pedal (L), no edema noted Pedal (R), no edema noted Generalized Neurologic: motor weakness Skin: normal pigmentation, warm/dry SABRINA NAYAK May 24, 2017 08:42
[2017-05-24] MEDS: Heparin 5000 units/ml inj SUBQ SCH ×2 (09:05→20:48)
[2017-05-24] MEDS: Metoprolol 25mg tab ORAL SCH ×2 (09:05→17:59)
[2017-05-24 10:42] LABS: ANISOCYTOSIS 1+; BAND NEUTROPHILS % (MANUAL) 0 % (0-8); BASOPHILS % (MANUAL) 1 % (0-2); EOSINOPHILS % (MANUAL) 23 % (0-3); HYPOCHROMASIA 1+; LYMPHOCYTES % (MANUAL) 24 % (20-45); NEUTROPHILS % (MANUAL) 44 % (45-75); PLATELET ESTIMATE ADEQUATE; PLATELET MORPHOLOGY NORMAL; TOTAL CELLS COUNTED 100
[2017-05-24] MEDS ORDERED: Vancomycin 750 MG in NS 275 ML IVPB SCH (11:00)
[2017-05-24] MEDS ORDERED: ALPRAZolam 0.5mg tab ORAL PRN (11:15)
[2017-05-24 12:00] VITALS: BP 134/88
--- NOTE | 2017-05-24 15:25 | Infectious Diseases Prog Note ---
Assessment/Plan Assessment/Plan A 1. E.coli UTI 2. pneumonia 3. HPN 4. leucocytosis improving P 1. continue aztreonam 2. discontinue iv vancomycin Subjective ROS Limited/Unobtainable: Yes Constitutional: Reports: no symptoms Gastrointestinal/Abdominal: Reports: no symptoms Genitourinary: Reports: no symptoms Allergies: Coded Allergies: PENICILLINS (Verified Allergy, Unknown, 05/21/17) Shrimp (Verified Allergy, Unknown, 05/21/17) Objective Vital Signs Last 24 Hour Vital Signs Date Time Temp Pulse Resp B/P (MAP) Pulse Ox O2 Delivery O2 Flow Rate FiO2 05/24/17 09:05 80 138/94 05/24/17 09:05 80 138/94 05/24/17 08:00 97.8 80 19 138/94 98 Room Air 05/24/17 07:00 80 18 Room Air 05/23/17 20:00 97.9 108 20 149/109 94 Room Air 05/23/17 19:35 89 18 Room Air 05/23/17 16:00 97.6 94 20 132/64 96 Room Air Height (Feet): 5 Height (Inches): 3.00 Weight (Pounds): 120 General Appearance: no acute distress HEENT: mucous membranes moist Respiratory/Chest: chest wall non-tender Cardiovascular: normal rate Abdomen: soft, non tender Extremities: no edema Neurologic/Psychiatric: alert, responsive Microbiology Date/Time Source Procedure Growth Status 05/21/17 16:42 Blood Blood Culture - Preliminary NO GROWTH AFTER 48 HOURS Resulted 05/21/17 16:42 Blood Blood Culture - Preliminary NO GROWTH AFTER 48 HOURS Resulted 05/21/17 18:58 Nasal Nares MRSA Culture - Final NO METHICILLIN RESISTANT STAPH AUREUS... Complete 05/21/17 17:35 Nasal Nares Influenza Types A,B Antigen ([facility]) - Final Complete 05/21/17 16:35 Urine,Clean Catch Urine Culture - Final Escherichia Coli Complete 05/21/17 18:58 Rectum VRE Culture - Final NO VANCOMYCIN RESISTANT ENTEROCOCCUS ... Complete Laboratory Tests Test 05/24/17 06:57 White Blood Count 8.4 K/UL (4.8-10.8) Red Blood Count 3.76 M/UL (4.20-5.40) L Hemoglobin 11.1 G/DL (12.0-16.0) L Hematocrit 33.3 % (37.0-47.0) L Mean Corpuscular Volume 89 FL (80-99) Mean Corpuscular Hemoglobin 29.5 PG (27.0-31.0) Mean Corpuscular Hemoglobin Concent 33.2 G/DL (32.0-36.0) Red Cell Distribution Width 12.3 % (11.6-14.8) Platelet Count 377 K/UL (150-450) Mean Platelet Volume 5.5 FL (6.5-10.1) L Neutrophils (%) (Auto) % (45.0-75.0) Lymphocytes (%) (Auto) % (20.0-45.0) Monocytes (%) (Auto) % (1.0-10.0) Eosinophils (%) (Auto) % (0.0-3.0) Basophils (%) (Auto) % (0.0-2.0) Differential Total Cells Counted 100 Neutrophils % (Manual) 44 % (45-75) L Lymphocytes % (Manual) 24 % (20-45) Monocytes % (Manual) 8 % (1-10) Eosinophils % (Manual) 23 % (0-3) H Basophils % (Manual) 1 % (0-2) Band Neutrophils 0 % (0-8) Platelet Estimate Adequate Platelet Morphology Normal Hypochromasia 1+ Anisocytosis 1+ Sodium Level 142 MMOL/L (136-145) Potassium Level 3.2 MMOL/L (3.5-5.1) L Chloride Level 106 MMOL/L (98-107) Carbon Dioxide Level 25 MMOL/L (21-32) Anion Gap 11 mmol/L (5-15) Blood Urea Nitrogen 8 mg/dL (7-18) Creatinine 0.9 MG/DL (0.55-1.30) Estimat Glomerular Filtration Rate mL/min (>60) Glucose Level 124 MG/DL (74-106) H Calcium Level 8.9 MG/DL (8.5-10.1) Phosphorus Level 3.0 MG/DL (2.5-4.9) Magnesium Level 2.0 MG/DL (1.8-2.4) Total Bilirubin 0.3 MG/DL (0.2-1.0) Aspartate Amino Transf (AST/SGOT) 60 U/L (15-37) H Alanine Aminotransferase (ALT/SGPT) 61 U/L (12-78) Alkaline Phosphatase 79 U/L (46-116) Total Protein 7.2 G/DL (6.4-8.2) Albumin 2.7 G/DL (3.4-5.0) L Globulin 4.5 g/dL Albumin/Globulin Ratio 0.6 (1.0-2.7) L Vancomycin Level Trough 14.5 ug/mL (5.0-12.0) H Current Medications Medications (Trade) Dose Ordered Sig/Rox Route PRN Reason Start Time Stop Time Status Last Admin Dose Admin Acetaminophen (Tylenol) 650 mg Q4H PRN ORAL fever 05/21/17 19:00 06/20/17 18:59 05/23/17 06:15 Al Hydroxide/Mg Hydroxide (Mylanta II) 30 ml Q6H PRN ORAL dyspepsia 05/21/17 19:00 06/20/17 18:59 Albuterol/ Ipratropium (Albuterol/ Ipratropium) 3 ml Q4HRT PRN HHN Shortness of Breath 05/21/17 19:00 05/26/17 18:59 Amlodipine Besylate (Norvasc) 10 mg DAILY ORAL 05/22/17 09:00 06/21/17 08:59 05/24/17 09:05 Aztreonam 1 gm/ Dextrose 55 ml @ 110 mls/hr Q8HR IVPB 05/22/17 22:00 05/28/17 22:59 05/24/17 05:58 Dextrose/Sodium Chloride 1,000 ml @ 50 mls/hr Q20H IV 05/22/17 07:30 06/21/17 07:29 05/23/17 23:21 Divalproex Sodium (Depakote ER) 250 mg BEDTIME ORAL 05/23/17 21:00 06/22/17 20:59 05/23/17 20:42 Haloperidol Lactate (Haldol) 5 mg Q6H PRN IM Agitation 05/24/17 14:00 06/23/17 13:59 Heparin Sodium (Porcine) (Heparin 5000 units/ml) 5,000 units EVERY 12 HOURS SUBQ 05/21/17 21:00 06/20/17 20:59 05/24/17 09:05 Metoprolol Tartrate (Lopressor) 25 mg BID ORAL 05/22/17 09:00 06/21/17 08:59 05/24/17 09:05 Nitroglycerin (Ntg) 0.4 mg q5 mins PRN SL Prn Chest Pain 05/21/17 19:00 06/20/17 18:59 Olanzapine (ZyPREXA) 5 mg BEDTIME ORAL 05/23/17 21:00 06/22/17 20:59 05/23/17 20:41 Ondansetron HCl (Zofran) 4 mg Q6H PRN IVP Nausea & Vomiting 05/21/17 19:00 06/20/17 18:59 Polyethylene Glycol (Miralax) 17 gm DAILYPRN PRN ORAL Constipation 05/21/17 19:00 06/20/17 18:59 Promethazine HCl/ Codeine (Phenergan with Codeine) 5 ml Q4H PRN ORAL For Cough 05/21/17 19:00 06/20/17 18:59 Temazepam (Restoril) 15 mg HSPRN PRN ORAL Insomnia 05/21/17 19:00 05/28/17 18:59 05/23/17 20:42 Vancomycin HCl (Vanco rx to dose) 1 ea DAILY PRN MISC Per rx protocol 05/21/17 19:00 06/20/17 18:59 Vancomycin HCl 750 mg/Sodium Chloride 275 ml @ 183.708 mls/hr Q12HR@1100,2300 IVPB 05/24/17 11:00 05/29/17 10:59 05/24/17 13:44 VIKRAM ORELLANA May 24, 2017 15:25
[2017-05-24] MEDS ORDERED: D5 1/2NS 1000ml IV ONE (15:44)
[2017-05-24 16:25] VITALS: BP 128/86
[2017-05-24] MEDS: D5 1/2NS 1,000 ML IV SCH (19:30)
[2017-05-24 20:07] VITALS: BP 137/72
[2017-05-24] MEDS: Depakote ER 250mg tab ORAL SCH (20:47)
[2017-05-24] MEDS: Haloperidol 5mg/ml Inj IM PRN (20:49)
--- NOTE | 2017-05-24 21:21 | Pulmonology Progress Note ---
Assessment/Plan Problems: (1) Pneumonia (2) Dementia (3) Breast cancer (4) Hypertension Assessment/Plan still anxious better controlled behavior continue abx tolerating diet. all notes and meds reviewed, labs ordered. Subjective ROS Limited/Unobtainable: No Constitutional: Reports: no symptoms HEENT: Repors: no symptoms Respiratory: Reports: no symptoms Allergies: Coded Allergies: PENICILLINS (Verified Allergy, Unknown, 05/21/17) Shrimp (Verified Allergy, Unknown, 05/21/17) Objective Last 24 Hour Vital Signs Date Time Temp Pulse Resp B/P (MAP) Pulse Ox O2 Delivery O2 Flow Rate FiO2 05/24/17 20:14 88 18 Room Air 05/24/17 20:07 98.0 87 20 137/72 97 Room Air 05/24/17 17:59 92 128/86 05/24/17 16:25 97.6 92 18 128/86 94 Room Air 05/24/17 12:00 97.8 92 20 134/88 96 Room Air 05/24/17 09:05 80 138/94 05/24/17 09:05 80 138/94 05/24/17 08:00 97.8 80 19 138/94 98 Room Air 05/24/17 07:00 80 18 Room Air Intake and Output 05/24/17 05/25/17 19:00 07:00 Intake Total 500 ml Balance 500 ml Intake Oral 500 ml # Voids 4 1 Objective General Appearance: WD/WN Lines, tubes and drains: peripheral HEENT: normocephalic, atraumatic Neck: non-tender, normal alignment Cardiovascular/Chest: normal peripheral pulses, normal rate Abdomen: normal bowel sounds Genitourinary/Rectal: normal genital exam Extremities: non-tender Laboratory Tests 05/24/17 06:57: White Blood Count 8.4, Red Blood Count 3.76L, Hemoglobin 11.1L, Hematocrit 33.3L , Mean Corpuscular Volume 89, Mean Corpuscular Hemoglobin 29.5, Mean Corpuscular Hemoglobin Concent 33.2, Red Cell Distribution Width 12.3, Platelet Count 377, Mean Platelet Volume 5.5L, Neutrophils (%) (Auto) , Lymphocytes (%) ( Auto) , Monocytes (%) (Auto) , Eosinophils (%) (Auto) , Basophils (%) (Auto) , Differential Total Cells Counted 100, Neutrophils % (Manual) 44L, Lymphocytes % (Manual) 24, Monocytes % (Manual) 8, Eosinophils % (Manual) 23H, Basophils % ( Manual) 1, Band Neutrophils 0, Platelet Estimate Adequate, Platelet Morphology Normal, Hypochromasia 1+, Anisocytosis 1+, Sodium Level 142, Potassium Level 3.2L, Chloride Level 106, Carbon Dioxide Level 25, Anion Gap 11, Blood Urea Nitrogen 8, Creatinine 0.9, Estimat Glomerular Filtration Rate , Glucose Level 124H, Calcium Level 8.9, Phosphorus Level 3.0, Magnesium Level 2.0, Total Bilirubin 0.3, Aspartate Amino Transf (AST/SGOT) 60H, Alanine Aminotransferase ( ALT/SGPT) 61, Alkaline Phosphatase 79, Total Protein 7.2, Albumin 2.7L, Globulin 4.5, Albumin/Globulin Ratio 0.6L, Vancomycin Level Trough 14.5H Current Medications Medications (Trade) Dose Ordered Sig/Rox Route PRN Reason Start Time Stop Time Status Last Admin Dose Admin Acetaminophen (Tylenol) 650 mg Q4H PRN ORAL fever 05/21/17 19:00 06/20/17 18:59 05/23/17 06:15 Al Hydroxide/Mg Hydroxide (Mylanta II) 30 ml Q6H PRN ORAL dyspepsia 05/21/17 19:00 06/20/17 18:59 Albuterol/ Ipratropium (Albuterol/ Ipratropium) 3 ml Q4HRT PRN HHN Shortness of Breath 05/21/17 19:00 05/26/17 18:59 Amlodipine Besylate (Norvasc) 10 mg DAILY ORAL 05/22/17 09:00 06/21/17 08:59 05/24/17 09:05 Aztreonam 1 gm/ Dextrose 55 ml @ 110 mls/hr Q8HR IVPB 05/22/17 22:00 05/28/17 22:59 05/24/17 15:40 Dextrose/Sodium Chloride 1,000 ml @ 50 mls/hr Q20H IV 05/22/17 07:30 06/21/17 07:29 05/24/17 19:30 Divalproex Sodium (Depakote ER) 250 mg BEDTIME ORAL 05/23/17 21:00 06/22/17 20:59 05/24/17 20:47 Haloperidol Lactate (Haldol) 5 mg Q6H PRN IM Agitation 05/24/17 14:00 06/23/17 13:59 05/24/17 20:49 Heparin Sodium (Porcine) (Heparin 5000 units/ml) 5,000 units EVERY 12 HOURS SUBQ 05/21/17 21:00 06/20/17 20:59 05/24/17 20:48 Metoprolol Tartrate (Lopressor) 25 mg BID ORAL 05/22/17 09:00 06/21/17 08:59 05/24/17 17:59 Nitroglycerin (Ntg) 0.4 mg q5 mins PRN SL Prn Chest Pain 05/21/17 19:00 06/20/17 18:59 Olanzapine (ZyPREXA) 5 mg BEDTIME ORAL 05/23/17 21:00 06/22/17 20:59 05/24/17 20:47 Ondansetron HCl (Zofran) 4 mg Q6H PRN IVP Nausea & Vomiting 05/21/17 19:00 06/20/17 18:59 Polyethylene Glycol (Miralax) 17 gm DAILYPRN PRN ORAL Constipation 05/21/17 19:00 06/20/17 18:59 Promethazine HCl/ Codeine (Phenergan with Codeine) 5 ml Q4H PRN ORAL For Cough 05/21/17 19:00 06/20/17 18:59 Temazepam (Restoril) 15 mg HSPRN PRN ORAL Insomnia 05/21/17 19:00 05/28/17 18:59 05/23/17 20:42 ZANE NERI May 24, 2017 21:21
--- NOTE | 2017-05-24 23:30 | General Progress Note ---
Assessment/Plan Status: stable, tolerating diet Subjective Neurologic/Psychiatric: Reports: anxiety, depressed, emotional problems Allergies: Coded Allergies: PENICILLINS (Verified Allergy, Unknown, 05/21/17) Shrimp (Verified Allergy, Unknown, 05/21/17) Objective Last 24 Hour Vital Signs Date Time Temp Pulse Resp B/P (MAP) Pulse Ox O2 Delivery O2 Flow Rate FiO2 05/24/17 20:14 88 18 Room Air 05/24/17 20:07 98.0 87 20 137/72 97 Room Air 05/24/17 17:59 92 128/86 05/24/17 16:25 97.6 92 18 128/86 94 Room Air 05/24/17 12:00 97.8 92 20 134/88 96 Room Air 05/24/17 09:05 80 138/94 05/24/17 09:05 80 138/94 05/24/17 08:00 97.8 80 19 138/94 98 Room Air 05/24/17 07:00 80 18 Room Air Intake and Output 05/24/17 05/25/17 19:00 07:00 Intake Total 500 ml Balance 500 ml Intake Oral 500 ml # Voids 4 2 Laboratory Tests 05/24/17 06:57: White Blood Count 8.4, Red Blood Count 3.76L, Hemoglobin 11.1L, Hematocrit 33.3L , Mean Corpuscular Volume 89, Mean Corpuscular Hemoglobin 29.5, Mean Corpuscular Hemoglobin Concent 33.2, Red Cell Distribution Width 12.3, Platelet Count 377, Mean Platelet Volume 5.5L, Neutrophils (%) (Auto) , Lymphocytes (%) ( Auto) , Monocytes (%) (Auto) , Eosinophils (%) (Auto) , Basophils (%) (Auto) , Differential Total Cells Counted 100, Neutrophils % (Manual) 44L, Lymphocytes % (Manual) 24, Monocytes % (Manual) 8, Eosinophils % (Manual) 23H, Basophils % ( Manual) 1, Band Neutrophils 0, Platelet Estimate Adequate, Platelet Morphology Normal, Hypochromasia 1+, Anisocytosis 1+, Sodium Level 142, Potassium Level 3.2L, Chloride Level 106, Carbon Dioxide Level 25, Anion Gap 11, Blood Urea Nitrogen 8, Creatinine 0.9, Estimat Glomerular Filtration Rate , Glucose Level 124H, Calcium Level 8.9, Phosphorus Level 3.0, Magnesium Level 2.0, Total Bilirubin 0.3, Aspartate Amino Transf (AST/SGOT) 60H, Alanine Aminotransferase ( ALT/SGPT) 61, Alkaline Phosphatase 79, Total Protein 7.2, Albumin 2.7L, Globulin 4.5, Albumin/Globulin Ratio 0.6L, Vancomycin Level Trough 14.5H Height (Feet): 5 Height (Inches): 3.00 Weight (Pounds): 120 General Appearance: no apparent distress, alert Neurologic: alert, responsive, disoriented, depressed affect Opal Hidalgo M.D. May 24, 2017 23:30
[2017-05-24 23:48] VITALS: BP 150/70
[2017-05-25 04:19] VITALS: BP_SYST 136; BP_SYST 141; BP_DIAS 62; BP_DIAS 71
[2017-05-25] MEDS: Aztreonam 1gm/D5W 55ml IVPB SCH ×2 (05:29)
--- NOTE | 2017-05-25 07:15 | Consultation ---
DATE OF CONSULTATION: 05/22/2017 INFECTIOUS DISEASE CONSULTATION CONSULTING PHYSICIAN: Seymour Leyva M.D. This consultation is for coverage of Dr. Jones. PRIMARY ATTENDING PHYSICIAN: Mic Romero D.O. REASON FOR CONSULTATION: Pneumonia and UTI. HISTORY OF PRESENT ILLNESS: This is an 87-year-old female admitted yesterday from a [facility] facility because of fever, had a temperature of 101.2 here, had cough and congestion. The patient is demented and not a source of history. PAST MEDICAL HISTORY: Significant for dementia, hypertension. PAST SURGICAL HISTORY: Neck surgery. ALLERGIES: Questionable allergy to penicillin and shrimp. According to the daughter, she tolerated amoxicillin a couple of years before. MEDICATIONS: Vancomycin, amlodipine, metoprolol, trazodone, aztreonam, heparin, Tylenol, MiraLAX, nitroglycerin, and DuoNeb inhaler. SOCIAL HISTORY: Lived before at home, but in less than a month she was put in a nursing facility. No history of alcohol or drug abuse. VACCINATION HISTORY: The family is not sure if the patient received flu vaccination and pneumonia vaccination. REVIEW OF SYSTEMS: Not obtainable. PHYSICAL EXAMINATION: GENERAL APPEARANCE: No acute distress, confused. VITAL SIGNS: Temperature 97.7, pulse 78, blood pressure 130/53. HEAD AND NECK: Mineral conjunctivae. HEART: Regular. LUNGS: Clear. ABDOMEN: Soft and nontender. EXTREMITIES: No edema, has muscle atrophy. SKIN: Some bruises and has a superficial skin laceration on the left forearm. LABORATORY AND DIAGNOSTIC DATA: WBC 11.5, hemoglobin 10.8, hematocrit 34.2, platelets 277. Sodium 138, potassium 3, chloride 101, bicarbonate 23, BUN 12, creatinine 0.9, glucose 100, albumin 2.9. Chest x-ray shows infiltrates in the left lung base. Wound culture growing gram-negative bacillus, influenza A and B was negative. IMPRESSION: 1. Pneumonia, 2.UTI with gram-negative rods. 3. Dementia. 4. Depression. 5. Anemia. 6. Hypertension. 7. Questionable history of penicillin allergy. RECOMMENDATION: We will continue with vancomycin and Azactam. We will follow up the cultures and narrow antibiotics. At the end of my exam, I thank Dr. Mic Romero for involving me in the care of this patient. Seymour Leyva M.D. DR: Stephen JOB#: [id number] CC: MATTHEW
[2017-05-25] MEDS: Metoprolol 25mg tab ORAL SCH ×2 (08:42→09:00)
[2017-05-25] MEDS: Heparin 5000 units/ml inj SUBQ SCH (08:46)
--- NOTE | 2017-05-25 12:07 | Infectious Diseases Prog Note ---
Assessment/Plan Assessment/Plan A 1. E.coli UTI 2. pneumonia 3. HPN 4. leucocytosis improving P 1. may be discharged to SNF with PO Bactrim X 4 days Subjective Constitutional: Reports: no symptoms Neurologic: Reports: confusion, other - refuses medications & blood draw Allergies: Coded Allergies: PENICILLINS (Verified Allergy, Unknown, 05/21/17) Shrimp (Verified Allergy, Unknown, 05/21/17) Objective Vital Signs Last 24 Hour Vital Signs Date Time Temp Pulse Resp B/P (MAP) Pulse Ox O2 Delivery O2 Flow Rate FiO2 05/25/17 08:42 92 148/96 05/25/17 08:41 92 148/96 05/25/17 07:55 91 18 Room Air 05/25/17 04:19 98.0 96 20 136/62 Room Air 05/24/17 23:48 98.0 93 20 150/70 98 Room Air 05/24/17 20:14 88 18 Room Air 05/24/17 20:07 98.0 87 20 137/72 97 Room Air 05/24/17 17:59 92 128/86 05/24/17 16:25 97.6 92 18 128/86 94 Room Air Height (Feet): 5 Height (Inches): 3.00 Weight (Pounds): 120 General Appearance: no acute distress HEENT: mucous membranes moist Respiratory/Chest: lungs clear Cardiovascular: normal rate Abdomen: soft, non tender Extremities: no edema Neurologic/Psychiatric: alert, responsive, disoriented Current Medications Medications (Trade) Dose Ordered Sig/Rox Route PRN Reason Start Time Stop Time Status Last Admin Dose Admin Acetaminophen (Tylenol) 650 mg Q4H PRN ORAL fever 05/21/17 19:00 06/20/17 18:59 05/23/17 06:15 Al Hydroxide/Mg Hydroxide (Mylanta II) 30 ml Q6H PRN ORAL dyspepsia 05/21/17 19:00 06/20/17 18:59 Albuterol/ Ipratropium (Albuterol/ Ipratropium) 3 ml Q4HRT PRN HHN Shortness of Breath 05/21/17 19:00 05/26/17 18:59 Amlodipine Besylate (Norvasc) 10 mg DAILY ORAL 05/22/17 09:00 06/21/17 08:59 05/25/17 08:41 Aztreonam 1 gm/ Dextrose 55 ml @ 110 mls/hr Q8HR IVPB 05/22/17 22:00 05/28/17 22:59 05/25/17 05:29 Dextrose/Sodium Chloride 1,000 ml @ 50 mls/hr Q20H IV 05/22/17 07:30 06/21/17 07:29 05/24/17 19:30 Divalproex Sodium (Depakote ER) 250 mg BEDTIME ORAL 05/23/17 21:00 06/22/17 20:59 05/24/17 20:47 Haloperidol Lactate (Haldol) 5 mg Q6H PRN IM Agitation 05/24/17 14:00 06/23/17 13:59 05/24/17 20:49 Heparin Sodium (Porcine) (Heparin 5000 units/ml) 5,000 units EVERY 12 HOURS SUBQ 05/21/17 21:00 06/20/17 20:59 05/24/17 20:48 Metoprolol Tartrate (Lopressor) 25 mg BID ORAL 05/22/17 09:00 06/21/17 08:59 05/25/17 08:42 Nitroglycerin (Ntg) 0.4 mg q5 mins PRN SL Prn Chest Pain 05/21/17 19:00 06/20/17 18:59 Olanzapine (ZyPREXA) 5 mg BEDTIME ORAL 05/23/17 21:00 06/22/17 20:59 05/25/17 08:42 Ondansetron HCl (Zofran) 4 mg Q6H PRN IVP Nausea & Vomiting 05/21/17 19:00 06/20/17 18:59 Polyethylene Glycol (Miralax) 17 gm DAILYPRN PRN ORAL Constipation 05/21/17 19:00 06/20/17 18:59 Promethazine HCl/ Codeine (Phenergan with Codeine) 5 ml Q4H PRN ORAL For Cough 05/21/17 19:00 06/20/17 18:59 Temazepam (Restoril) 15 mg HSPRN PRN ORAL Insomnia 05/21/17 19:00 05/28/17 18:59 05/23/17 20:42 VIKRAM ORELLANA May 25, 2017 12:07
[2017-05-25] MEDS: Haloperidol 5mg/ml Inj IM PRN (12:30)
--- NOTE | 2017-05-25 13:02 | General Progress Note ---
Assessment/Plan Problem List: (1) Hypokalemia ICD Codes: E87.6 - Hypokalemia SNOMED: 88309573 (2) Weakness ICD Codes: R53.1 - Weakness SNOMED: 56509432 (3) UTI (urinary tract infection) ICD Codes: N39.0 - Urinary tract infection, site not specified SNOMED: 59305076 Qualifiers: Qualified Codes: N39.0 - Urinary tract infection, site not specified (4) Dementia ICD Codes: F03.90 - Unspecified dementia without behavioral disturbance SNOMED: 67045972 (5) Hypertension ICD Codes: I10 - Essential (primary) hypertension SNOMED: 17653616 (6) Pneumonia ICD Codes: J18.9 - Pneumonia, unspecified organism SNOMED: 595943832 Qualifiers: Qualified Codes: J18.1 - Lobar pneumonia, unspecified organism Status: stable, progressing, tolerating diet Assessment/Plan ot pt diet abx neph f/u dc if ven[place] by id and neph Subjective Constitutional: Reports: weakness Allergies: Coded Allergies: PENICILLINS (Verified Allergy, Unknown, 05/21/17) Shrimp (Verified Allergy, Unknown, 05/21/17) All Systems: reviewed and negative except above Subjective sleepy calm Objective Last 24 Hour Vital Signs Date Time Temp Pulse Resp B/P (MAP) Pulse Ox O2 Delivery O2 Flow Rate FiO2 05/25/17 08:42 92 148/96 05/25/17 08:41 92 148/96 05/25/17 07:55 91 18 Room Air 05/25/17 04:19 98.0 96 20 136/62 Room Air 05/24/17 23:48 98.0 93 20 150/70 98 Room Air 05/24/17 20:14 88 18 Room Air 05/24/17 20:07 98.0 87 20 137/72 97 Room Air 05/24/17 17:59 92 128/86 05/24/17 16:25 97.6 92 18 128/86 94 Room Air Height (Feet): 5 Height (Inches): 3.00 Weight (Pounds): 120 General Appearance: lethargic EENT: normal ENT inspection Neck: normal alignment Cardiovascular: normal peripheral pulses, normal rate, regular rhythm Respiratory/Chest: chest wall non-tender, lungs clear, normal breath sounds Abdomen: normal bowel sounds, non tender, soft Extremities: normal inspection Edema: no edema noted Arm (L), no edema noted Arm (R), no edema noted Leg (L), no edema noted Leg (R), no edema noted Pedal (L), no edema noted Pedal (R), no edema noted Generalized Neurologic: motor weakness Skin: normal pigmentation, warm/dry SABRINA NAYAK May 25, 2017 13:02
[2017-05-25] MEDS ORDERED: BACTRIM DS TAB1 EAC1 ORAL (14:39)
[2017-05-25] MEDS ORDERED: METOPROLOL TART25 MG ORAL (14:46)
[2017-05-25] MEDS ORDERED: DEPAKENE250 MG ORAL (14:48)
[2017-05-25] MEDS ORDERED: ZYPREXA7.5 MG ORAL (14:50)
[2017-05-25] MEDS ORDERED: HALDOL5 MG/1 ML IM (14:55)
[2017-05-25] MEDS ORDERED: MIRALAX17 G2 ORAL (14:56)
[2017-05-25] MEDS ORDERED: RESTORIL15 MG ORAL (14:56)
--- NOTE | 2017-05-25 15:19 | Pulmonology Progress Note ---
Assessment/Plan Problems: (1) Pneumonia (2) Dementia (3) Breast cancer (4) Hypertension Assessment/Plan still anxious better controlled behavior continue abx tolerating diet. all notes and meds reviewed, dc planning Subjective ROS Limited/Unobtainable: No HEENT: Repors: no symptoms Respiratory: Reports: no symptoms Allergies: Coded Allergies: PENICILLINS (Verified Allergy, Unknown, 05/21/17) Shrimp (Verified Allergy, Unknown, 05/21/17) Objective Last 24 Hour Vital Signs Date Time Temp Pulse Resp B/P (MAP) Pulse Ox O2 Delivery O2 Flow Rate FiO2 05/25/17 07:55 91 18 Room Air 05/25/17 04:19 98.0 96 20 136/62 Room Air 05/24/17 23:48 98.0 93 20 150/70 98 Room Air 05/24/17 20:14 88 18 Room Air 05/24/17 20:07 98.0 87 20 137/72 97 Room Air 05/24/17 17:59 92 128/86 05/24/17 16:25 97.6 92 18 128/86 94 Room Air Intake and Output 05/25/17 05/26/17 19:00 07:00 Intake Total 350 ml Balance 350 ml IV Total 350 ml Objective General Appearance: WD/WN Lines, tubes and drains: peripheral HEENT: normocephalic, atraumatic Neck: non-tender, normal alignment Cardiovascular/Chest: normal peripheral pulses, normal rate Abdomen: normal bowel sounds Genitourinary/Rectal: normal genital exam Extremities: non-tender Current Medications Medications (Trade) Dose Ordered Sig/Rox Route PRN Reason Start Time Stop Time Status Last Admin Dose Admin Acetaminophen (Tylenol) 650 mg Q4H PRN ORAL fever 05/21/17 19:00 06/20/17 18:59 05/25/17 15:04 Al Hydroxide/Mg Hydroxide (Mylanta II) 30 ml Q6H PRN ORAL dyspepsia 05/21/17 19:00 06/20/17 18:59 Albuterol/ Ipratropium (Albuterol/ Ipratropium) 3 ml Q4HRT PRN HHN Shortness of Breath 05/21/17 19:00 05/26/17 18:59 Amlodipine Besylate (Norvasc) 10 mg DAILY ORAL 05/22/17 09:00 06/21/17 08:59 05/24/17 09:05 Dextrose/Sodium Chloride 1,000 ml @ 50 mls/hr Q20H IV 05/22/17 07:30 06/21/17 07:29 05/24/17 19:30 Divalproex Sodium (Depakote ER) 250 mg BEDTIME ORAL 05/23/17 21:00 06/22/17 20:59 05/24/17 20:47 Haloperidol Lactate (Haldol) 5 mg Q6H PRN IM Agitation 05/24/17 14:00 06/23/17 13:59 05/25/17 12:30 Heparin Sodium (Porcine) (Heparin 5000 units/ml) 5,000 units EVERY 12 HOURS SUBQ 05/21/17 21:00 06/20/17 20:59 05/24/17 20:48 Metoprolol Tartrate (Lopressor) 25 mg BID ORAL 05/22/17 09:00 06/21/17 08:59 05/24/17 17:59 Nitroglycerin (Ntg) 0.4 mg q5 mins PRN SL Prn Chest Pain 05/21/17 19:00 06/20/17 18:59 Olanzapine (ZyPREXA) 5 mg BEDTIME ORAL 05/23/17 21:00 06/22/17 20:59 05/24/17 20:47 Ondansetron HCl (Zofran) 4 mg Q6H PRN IVP Nausea & Vomiting 05/21/17 19:00 06/20/17 18:59 Polyethylene Glycol (Miralax) 17 gm DAILYPRN PRN ORAL Constipation 05/21/17 19:00 06/20/17 18:59 Promethazine HCl/ Codeine (Phenergan with Codeine) 5 ml Q4H PRN ORAL For Cough 05/21/17 19:00 06/20/17 18:59 Temazepam (Restoril) 15 mg HSPRN PRN ORAL Insomnia 05/21/17 19:00 05/28/17 18:59 05/23/17 20:42 Trimethoprim/ Sulfamethoxazole (Bactrim-DS) 1 ea TWICE A DAY ORAL 05/25/17 18:00 06/01/17 17:59 ZANE NERI May 25, 2017 15:19
[2017-05-25] MEDS ORDERED: D5 1/2NS 1000ml IV ONE (16:04)
[2017-05-25] MEDS ORDERED: Bactrim DS (160mg/800mg) tab ORAL SCH (18:00)
--- NOTE | 2017-05-25 22:05 | General Progress Note ---
Assessment/Plan Status: stable Assessment/Plan cont current meds Subjective Date patient seen: May 25, 2017 Neurologic/Psychiatric: Reports: anxiety, depressed, emotional problems Allergies: Coded Allergies: PENICILLINS (Verified Allergy, Unknown, 05/21/17) Shrimp (Verified Allergy, Unknown, 05/21/17) Objective Last 24 Hour Vital Signs Date Time Temp Pulse Resp B/P (MAP) Pulse Ox O2 Delivery O2 Flow Rate FiO2 05/25/17 07:55 91 18 Room Air 05/25/17 04:19 98.0 96 20 136/62 Room Air 05/24/17 23:48 98.0 93 20 150/70 98 Room Air Intake and Output 05/25/17 05/26/17 19:00 07:00 Intake Total 350 ml Balance 350 ml IV Total 350 ml Height (Feet): 5 Height (Inches): 3.00 Weight (Pounds): 120 General Appearance: no apparent distress, alert, confused Neurologic: alert, responsive, disoriented, depressed affect Opal Hidalgo M.D. May 25, 2017 22:05
--- NOTE | 2017-05-26 10:45 | Discharge Summary ---
Discharge Summary Hospital Course Date of Admission May 21, 2017 at 17:44 Date of Discharge May 25, 2017 at 16:05 Admitting Diagnosis fever/weakness HPI Yinka Arce is a 87 year old female who was admitted on May 21, 2017 at 17:44 for Fever/Weakness Hospital Course dc summary #[id number] Discharge Medications Continued Medications: Acetaminophen* (Acetaminophen 325MG Tablet*) 325 Mg Tablet 650 MG ORAL Q4H PRN for Mild pain/temp>101 Amlodipine Besylate* (Amlodipine Besylate*) 10 Mg Tablet 10 MG ORAL DAILY Docusate Sodium* (Docusate Sodium*) 100 Mg Capsule 100 MG ORAL DAILY Haloperidol Lactate (Haldol) 5 Mg/1 Ml Ampul 5 MG IM EVERY 6 HOURS PRN for Agitation, AMP Metoprolol Tartrate* (Metoprolol Tartrate*) 25 Mg Tablet 25 MG ORAL BID Olanzapine (Zyprexa) 7.5 Mg Tablet 5 MG ORAL HS, #30 TAB 0 Refills Polyethylene Glycol 3350* (Miralax*) 17 Gm Powd.pack 17 GM ORAL DAILY PRN for Constipation, PACKET Temazepam* (Restoril*) 15 Mg Capsule 15 MG ORAL BEDTIME PRN for Insomnia, CAP Trimethoprim/Sulfamethoxazole 160/800* (Bactrim Ds Tablet*) 1 Each Tablet 1 TAB ORAL TWICE A DAY, TAB Valproic Acid (Depakene) 250 Mg Capsule 250 MG ORAL HS, CAP Discharge Condition Upon Discharge: stable Discharge Disposition Patient was discharged to SNF Discharge Diagnoses: Discharge Instructions Discharge Instructions Special Instructions I have been assigned to complete a D/C Summary on this account. I was not involved in the patient management Kallie Sheffield NP ([facility]) May 26, 2017 10:45
--- NOTE | 2017-05-26 22:30 | Discharge Summary 2 SIG ---
DATE OF ADMISSION: 05/21/2017 DATE OF DISCHARGE: 05/25/2017 REASON FOR ADMISSION: 87-year-old female with history of hypertension, dementia, breast cancer, and depression, was sent from the custodial facility for evaluation due to the fever, cough, and congestive symptoms. The patient was given Tylenol at the custodial facility. Cough was dry. No wheezing. No hemoptysis. The patient denied chest pain or shortness of breath. No nausea. No vomiting. Workup in the emergency room revealed no fever. Stable vital signs. Pulse oximetry was stable on room air. Urinalysis with gross evidence of UTI. WBC- 10.6, potassium -3.3, BUN- 16, creatinine- 1.2. Chest x-ray with left lower lobe atelectasis, possible infiltrate. Troponin was negative. EKG revealed normal sinus rhythm. No acute ischemic changes. The patient was admitted for further management with diagnosis of pneumonia, UTI, dementia, breast cancer, and hypertension. HOSPITAL STAY: The patient was admitted. The patient was started on empiric antibiotics. ID consulted. Blood culture were negative. Influenza screen test was negative. Urine culture was positive for E. coli. Antibiotic regimen optimized based on sensitivity and evidence of penicillin allergy. While in the hospital, the patient was on IV antibiotics. ID cleared her for discharge on oral Bactrim for additional four days at the custodial facility. Supplemental oxygen provided as needed to keep pulse oximetry above 92%. Handheld nebulization and chest physical therapy were provided. halfway facility medications were resumed. Psychiatrist seen and evaluated the patient. and diagnosed the patient with dementia and psychotic disorder. The patient was started on Depakote and Zyprexa. Potassium was replaced. Electrolytes were closely monitored and replaced as needed. The patient was working with physical and occupational therapists Blood pressure was managed with calcium channel handy and was stable. The patient was stable for discharge. FINAL DIAGNOSES: 1. Pneumonia. 2. Urinary tract infection with Escherichia coli. 3. Dementia. 4. Hypertension. 5. Breast cancer. 6. Psychotic disorder. 7. Hypokalemia. DISCHARGE MEDICATIONS: See medication reconciliation list. DISCHARGE INSTRUCTIONS: The patient was discharged to custodial [facility]. Follow up with medical doctor at the facility. Mic Romero D.O. I have been assigned to dictate discharge summary on this account and I was not involved in the patient's management. Kallie Sheffield ([facility]) NLiPLi DR: Ariela JOB#: [id number] CC: MATTHEW
--- NOTE | 2017-05-31 16:31 | Cardiology Report ---
APPROVED REPORT EKG Measurement Heart [id number] Normal sinus rhythm Minimal voltage criteria for LVH, may be normal variant Borderline ECG
== END 2017-05-25 16:05 | DRG 193 ==
LOC: EDBD 16:02 → EMR 16:20 → 4E 17:44 → EDBEDREQ 18:13
DX: J18.9 Pneumonia, unspecified organism (principal); G93.40 Encephalopathy, unspecified; F03.90 Unspecified dementia, unspecified severity, without behavioral disturbance, psychotic disturbance, mood disturbance, and anxiety; N39.0 Urinary tract infection, site not specified; I10 Essential (primary) hypertension; C50.919 Malignant neoplasm of unspecified site of unspecified female breast; B96.20 Unspecified Escherichia coli [E. coli] as the cause of diseases classified elsewhere; D64.9 Anemia, unspecified; F41.8 Other specified anxiety disorders; E78.00 Pure hypercholesterolemia, unspecified; Z88.0 Allergy status to penicillin; E87.6 Hypokalemia; F29 Unspecified psychosis not due to a substance or known physiological condition; F32.9 Major depressive disorder, single episode, unspecified; R53.1 Weakness
CPT/HCPCS: 36415; 71010; 80048; 80053; 80069; 80202; 81003; 82550; 82553; 83735; 83880; 84100; 84484; 85007; 85025; 86710; 87040; 87081; 87086; 87181; 92610; 93005; 94664; 99285; J8499